=== PATIENT | female | born 1965 | race African-American/Black ===

== ENCOUNTER 2018-11-21 12:05 | Observation (INO) ==
[2018-11-21] MEDS ORDERED: ASPIRIN 325 MG TABLET PO STA (12:30)
[2018-11-21 13:15] LABS: Basophils # 0.1 10*3/uL (0.0-0.2); Basophils % 0.7 % (0.0-0.8); Eosinophils # 0.1 10*3/uL (0.0-0.87); Eosinophils % 0.6 % (0.00-10.9); Hematocrit 44.8 VOL% (35.7-47.0); Hemoglobin 14.8 GM/DL (12.0-16.0); Immature Granulocytes % 0.6 %; Immature Granulocytes Absolute 0.06 #; Lymphocytes # 3.2 10*3/uL (1.4-4.0); Lymphocytes % 31.6 % (21.3-54.2); Mean Corpuscular Volume 86.7 FL (87-102); Mean Platelet Volume 9.2 FL (9.6-12.0); Monocytes % 7.4 % (1.7-12.7); Neutrophils % 59.1 % (38.7-73.9); Platelet Count 407 T/CUMM (130-400); Red Blood Count 5.17 MC/CUMM (3.8-5.5); Red Cell Distribution Width 13.5 % (9.3-17.3); White Blood Count 10.1 T/CUMM (4-12)
[2018-11-21 13:25] LABS: PT Patient Result 10.9 SECS
[2018-11-21 13:43] LABS: Apearance,Urine Slightly Hazy (Clear); Bacteria,Urine Many /HPF (Few); Bilirubin,Urine Negative (Negative); Blood, Urine Small mg/dL (Negative); Glucose,Urine (UA) Negative (Negative); Hyaline Casts,Urine 22 /LPF (0-3); Ketones,Urine Negative (Negative); Mucus,Urine Occasional /LPF (Occasional); Nitrite,Urine Negative (Negative); Protein,Urine Negative; RBC,Urine 1 /HPF (0-4); Squamous Epithelial Cell,Urine Occasional /HPF (0-10); Urine Color Yellow (Yellow); Urine Specific Gravity 1.012 (1.001-1.035); Urine Urobilinogen < 2.0 EU/DL (0.2-1.0); WBC,Urine 3 /HPF (0-6)
[2018-11-21 13:49] LABS: Barbiturates Screen,Urine Negative (Negative); Benzodiazepines Screen,Urine Negative (Negative); Cannabinoid Screen,Urine Negative (Negative); Opiate Screen,Urine Negative (Negative); Phencyclidine Screen,Urine Negative (Negative)
[2018-11-21 13:57] LABS: Albumin 4.1 G/DL (3.4-5.0); Bilirubin,Total 0.6 MG/DL (0.2-1.0); Calcium 9.6 MG/DL (8.5-10.1); Total Protein 8.9 G/DL (6.4-8.3)
[2018-11-21] MEDS ORDERED: ALUM/MAG/SIMETH/LIDO VISC 1:1 30 ML BOTTLE PO PRN (15:33)
[2018-11-21] MEDS: PANTOPRAZOLE 40 MG TABLET PO SCH (16:12)
[2018-11-21] MEDS: ENOXAPARIN 120 MG/0.8 ML SYRINGE SUBCUT SCH (16:12)
[2018-11-21] MEDS ORDERED: COLCHICINE 0.6 MG CAPSULE PO PRN (17:02)
[2018-11-21] MEDS ORDERED: oxyCODONE/ACETAMINOPHEN 5-325 MG TABLET PO PRN (17:02)
[2018-11-21] MEDS ORDERED: predniSONE 20 MG TABLET PO PRN (17:02)
[2018-11-21] MEDS ORDERED: POTASSIUM CHLORIDE 20 MEQ TABLET PO ONE (17:05)
[2018-11-21] MEDS: clonazePAM 0.5 MG TABLET PO SCH (20:40)
[2018-11-21] MEDS: DOCUSATE SODIUM 100 MG CAPSULE PO SCH (20:40)
[2018-11-21] MEDS: lamoTRIgine 25 MG TABLET PO SCH (21:33)
[2018-11-22 05:59] LABS: Basophils # 0.1 10*3/uL (0.0-0.2); Basophils % 0.7 % (0.0-0.8); Eosinophils # 0.1 10*3/uL (0.0-0.87); Eosinophils % 0.8 % (0.00-10.9); Hematocrit 41.4 VOL% (35.7-47.0); Hemoglobin 13.6 GM/DL (12.0-16.0); Immature Granulocytes % 0.8 %; Immature Granulocytes Absolute 0.08 #; Lymphocytes # 3.3 10*3/uL (1.4-4.0); Lymphocytes % 32.1 % (21.3-54.2); Mean Corpuscular HGB Conc 32.9 GM/DL (32-36); Mean Corpuscular Volume 87.5 FL (87-102); Mean Platelet Volume 9.3 FL (9.6-12.0); Monocytes % 9.3 % (1.7-12.7); Neutrophils % 56.3 % (38.7-73.9); Platelet Count 367 T/CUMM (130-400); Red Blood Count 4.73 MC/CUMM (3.8-5.5); Red Cell Distribution Width 13.6 % (9.3-17.3); White Blood Count 10.4 T/CUMM (4-12)
[2018-11-22 06:20] LABS: Risk Ratio 3.4; VLDL CHOLESTEROL 32.4 MG/DL
[2018-11-22 06:26] LABS: Albumin 3.5 G/DL (3.4-5.0); Bilirubin,Total 0.6 MG/DL (0.2-1.0); Calcium 9.3 MG/DL (8.5-10.1); Osmolality,Calculated 287.4 MOS/KG (273-304); Thyroid Stimulating Hormone 1.37 uIU/ml (0.358-3.74); Total Protein 8.2 G/DL (6.4-8.3)
[2018-11-22] MEDS ORDERED: POTASSIUM CHLORIDE 20 MEQ TABLET PO PRN (07:02)
[2018-11-22] MEDS ORDERED: POTASSIUM CHLORIDE 20 MEQ TABLET PO ONE (07:02)
[2018-11-22] MEDS: MULTIVITAMIN (INTRINSIC) CAPSULE PO SCH (08:31)
[2018-11-22] MEDS: DOCUSATE SODIUM 100 MG CAPSULE PO SCH ×2 (08:31→20:48)
[2018-11-22] MEDS: PANTOPRAZOLE 40 MG TABLET PO SCH (08:31)
[2018-11-22] MEDS: ESCITALOPRAM 10 MG TABLET PO SCH (08:31)
[2018-11-22] MEDS: ATENOLOL 50 MG TABLET PO SCH (08:32)
[2018-11-22] MEDS: lamoTRIgine 25 MG TABLET PO SCH ×2 (08:32→20:48)
[2018-11-22] MEDS: ONDANSETRON 4 MG/2 ML VIAL IV PRN (14:50)
[2018-11-22] MEDS: ENOXAPARIN 120 MG/0.8 ML SYRINGE SUBCUT SCH (15:57)
[2018-11-22] MEDS: clonazePAM 0.5 MG TABLET PO SCH (20:48)
[2018-11-23] MEDS: ONDANSETRON 4 MG/2 ML VIAL IV PRN (00:04)
[2018-11-23 06:47] LABS: Basophils # 0.1 10*3/uL (0.0-0.2); Basophils % 0.7 % (0.0-0.8); Eosinophils # 0.1 10*3/uL (0.0-0.87); Eosinophils % 1.3 % (0.00-10.9); Hematocrit 39.5 VOL% (35.7-47.0); Hemoglobin 12.6 GM/DL (12.0-16.0); Immature Granulocytes % 0.6 %; Immature Granulocytes Absolute 0.05 #; Lymphocytes # 3.4 10*3/uL (1.4-4.0); Lymphocytes % 41.3 % (21.3-54.2); Mean Corpuscular HGB Conc 31.9 GM/DL (32-36); Mean Corpuscular Volume 87.8 FL (87-102); Mean Platelet Volume 9.3 FL (9.6-12.0); Monocytes % 10.2 % (1.7-12.7); Neutrophils % 45.9 % (38.7-73.9); Platelet Count 327 T/CUMM (130-400); Red Cell Distribution Width 13.4 % (9.3-17.3); White Blood Count 8.3 T/CUMM (4-12)
[2018-11-23 07:15] LABS: Calcium 8.7 MG/DL (8.5-10.1); Osmolality,Calculated 280.5 MOS/KG (273-304)
[2018-11-23] MEDS: ESCITALOPRAM 10 MG TABLET PO SCH (09:04)
[2018-11-23] MEDS: MULTIVITAMIN (INTRINSIC) CAPSULE PO SCH (09:04)
[2018-11-23] MEDS: PANTOPRAZOLE 40 MG TABLET PO SCH (09:05)
[2018-11-23] MEDS: lamoTRIgine 25 MG TABLET PO SCH (09:05)
[2018-11-23] MEDS: DOCUSATE SODIUM 100 MG CAPSULE PO SCH (09:05)
[2018-11-23] MEDS: ATENOLOL 50 MG TABLET PO SCH (09:05)
[2018-11-23 11:02] VITALS: BP 98/68
== END 2018-11-23 14:45 | disposition home or self-care (01) ==
LOC: N.EDINP 12:05 → N.ED 12:05 → SUATTDRO 14:32 → N.3E 16:37
PROVIDERS: ADMIT Family Medicine; ATTEND Internal Medicine

== ENCOUNTER 2019-11-12 00:45 | Observation (INO) ==
[2019-11-12] MEDS ORDERED: SODIUM CHLORIDE 0.9% 500 ML IV STA (01:24)
[2019-11-12] MEDS ORDERED: ONDANSETRON 4 MG/2 ML VIAL IV STA (01:24)
[2019-11-12 02:15] LABS: Basophils # 0.1 10*3/uL (0.0-0.2); Basophils % 0.6 % (0.0-0.8); Eosinophils # 0.1 10*3/uL (0.0-0.87); Eosinophils % 0.5 % (0.00-10.9); Hematocrit 41.2 VOL% (35.7-47.0); Hemoglobin 14.3 GM/DL (12.0-16.0); Immature Granulocytes % 0.7 %; Immature Granulocytes Absolute 0.08 #; Lymphocytes # 3.8 10*3/uL (1.4-4.0); Lymphocytes % 34.5 % (21.3-54.2); Mean Corpuscular HGB Conc 34.7 GM/DL (32-36); Mean Corpuscular Volume 86.6 FL (87-102); Mean Platelet Volume 10.5 FL (9.6-12.0); Monocytes % 7.3 % (1.7-12.7); NRBC # 0.02 10*3/uL; Neutrophils % 56.4 % (38.7-73.9); Platelet Count 346 T/CUMM (130-400); Red Blood Count 4.76 MC/CUMM (3.8-5.5); White Blood Count 10.9 T/CUMM (4-12)
[2019-11-12 02:29] LABS: Bilirubin,Total 0.6 MG/DL (0.2-1.0); Calcium 9.8 MG/DL (8.5-10.1); Osmolality,Calculated 291.5 MOS/KG (273-304); Thyroid Stimulating Hormone 4.48 uIU/ml (0.358-3.74); Total Protein 8.7 G/DL (6.4-8.3)
[2019-11-12] MEDS ORDERED: INSULIN REGULAR 100 UNIT/ML IV STA ×2 (02:35→04:31)
[2019-11-12] MEDS ORDERED: GLUCAGON 1 MG VIAL IM PRN ×2 (02:58→11:30)
[2019-11-12] MEDS ORDERED: DEXTROSE 50% 25 GM/50 ML VIAL IV PRN ×2 (02:58→11:30)
[2019-11-12] MEDS ORDERED: diphenhydrAMINE CAP 25 MG CAPSULE PO PRN (02:58)
[2019-11-12] MEDS ORDERED: NICOTINE 21 MG/24 HR PATCH TRANSDERM PRN (02:58)
[2019-11-12] MEDS ORDERED: guaiFENesin/DM ER 600-30 MG TABLET PO PRN (02:58)
[2019-11-12] MEDS ORDERED: hydrALAZINE 20 MG/1 ML VIAL IV PRN (02:58)
[2019-11-12] MEDS ORDERED: SODIUM CHLORIDE 0.9% 500 ML IV ONE (04:35)
[2019-11-12 04:50] LABS: Calcium 8.3 MG/DL (8.5-10.1); Osmolality,Calculated 287.5 MOS/KG (273-304)
[2019-11-12 05:20] LABS: ABG Base Excess -1.3 MMOL/L (-2.5-2.5); ABG HCO3 23.3 MMOL/L (20-26); ABG Oxygen Saturation 96.7 % (95-100); ABG PCO2 36.7 MM HG (35-48); ABG PH 7.405 (7.35-7.45); ABG PO2 87.3 MM HG (80-95); ABG TCO2 19.9 MMOL/L (23-27); Allen Test Positive; Pt O2 Delivery Device Room Air
[2019-11-12] MEDS: SODIUM CHLORIDE 0.9% 1,000 ML IV SCH ×3 (06:29→23:30)
[2019-11-12] MEDS: INSULIN REGULAR 100 UNIT/ML SUBCUT SCH ×5 (06:36→20:58)
[2019-11-12 07:00] LABS: Apearance,Urine CLEAR (Clear); Bilirubin,Urine Negative (Negative); Blood, Urine Small mg/dL (Negative); Glucose,Urine (UA) >=500 mg/dL (Negative); Ketones,Urine Negative (Negative); Nitrite,Urine Negative (Negative); Protein,Urine Negative; RBC,Urine 2 /HPF (0-4); Squamous Epithelial Cell,Urine Occasional /HPF (0-10); Urine Color Straw (Yellow); Urine Specific Gravity 1.016 (1.001-1.035); Urine Urobilinogen < 2.0 EU/DL (0.2-1.0); WBC,Urine 1 /HPF (0-6)
[2019-11-12] MEDS: ONDANSETRON 4 MG/2 ML VIAL IV PRN ×2 (07:34→17:54)
[2019-11-12 12:21] LABS: Albumin 3.5 G/DL (3.4-5.0); Bilirubin,Total 0.5 MG/DL (0.2-1.0); Calcium 9.2 MG/DL (8.5-10.1); Total Protein 7.6 G/DL (6.4-8.3)
[2019-11-12] MEDS ORDERED: POTASSIUM CHLORIDE 20 MEQ/15 ML UDCUP PO ONE (13:10)
[2019-11-12 14:14] LABS: Calcium 8.8 MG/DL (8.5-10.1); Osmolality,Calculated 279.1 MOS/KG (273-304)
[2019-11-12 14:23] LABS: Free T4 (Free Thyroxine) 1.31 NG/DL (0.76-1.46)
[2019-11-12 14:41] LABS: HIV Antigen/Antibody Result Nonreactive (Nonreactive); Hepatitis B Core IgM Quant 0.13 Index; Hepatitis B Surface Ag Quant < 0.10 Index; Hepatitis B Surface Ag Result Negative (Negative); Hepatitis C Virus Ab Quant 0.03 Index; Hepatitis C Virus Ab Result Negative (Negative)
[2019-11-12] MEDS: metFORMIN 500 MG TABLET PO SCH (16:24)
[2019-11-12] MEDS: ACETAMINOPHEN 325 MG TABLET PO PRN (16:40)
[2019-11-12] MEDS ORDERED: INSULIN GLARGINE 100 UNIT/ML SUBCUT SCH ×3 (21:00)
[2019-11-13] MEDS: INSULIN REGULAR 100 UNIT/ML SUBCUT SCH ×4 (02:38→12:36)
[2019-11-13 06:15] LABS: Risk Ratio 4.5
[2019-11-13] MEDS: SODIUM CHLORIDE 0.9% 1,000 ML IV SCH (07:00)
[2019-11-13] MEDS: ACETAMINOPHEN 325 MG TABLET PO PRN (08:08)
[2019-11-13] MEDS: metFORMIN 500 MG TABLET PO SCH (08:09)
[2019-11-13 08:11] LABS: Basophils % 0.5 % (0.0-0.8); Eosinophils # 0.1 10*3/uL (0.0-0.87); Eosinophils % 1.3 % (0.00-10.9); Hematocrit 34.3 VOL% (35.7-47.0); Immature Granulocytes % 0.4 %; Immature Granulocytes Absolute 0.03 #; Lymphocytes # 3.1 10*3/uL (1.4-4.0); Lymphocytes % 41.5 % (21.3-54.2); Mean Corpuscular HGB Conc 33.8 GM/DL (32-36); Mean Corpuscular Volume 89.6 FL (87-102); Mean Platelet Volume 10.5 FL (9.6-12.0); Monocytes % 6.2 % (1.7-12.7); Neutrophils % 50.1 % (38.7-73.9); Red Blood Count 3.83 MC/CUMM (3.8-5.5); Red Cell Distribution Width 14.3 % (9.3-17.3)
[2019-11-13 08:21] LABS: Hemoglobin 11.6 GM/DL (12.0-16.0); Platelet Count 265 T/CUMM (130-400); White Blood Count 7.6 T/CUMM (4-12)
[2019-11-13 08:24] LABS: Calcium 8.3 MG/DL (8.5-10.1); Osmolality,Calculated 280.8 MOS/KG (273-304)
[2019-11-13] MEDS ORDERED: POTASSIUM CHLORIDE 20 MEQ TABLET PO ONE (08:50)
[2019-11-13] MEDS ORDERED: MAGNESIUM SULF RIDER 2 GM in PREMIX 1 EACH IV ONE (08:50)
[2019-11-13 11:53] VITALS: BP 95/61
== END 2019-11-13 13:43 | disposition home or self-care (01) ==
LOC: N.ED 00:45 → N.EDINP 00:45 → N.TELEN 04:00
PROVIDERS: ADMIT Internal Medicine; ATTEND Internal Medicine

== ENCOUNTER 2020-11-18 12:26 | Inpatient (IN) ==
[2020-11-18] MEDS ORDERED: cefTRIAXone 1,000 MG in SODIUM CHLORIDE 0.9% 100 ML IV STA (13:27)
[2020-11-18] MEDS ORDERED: DEXAMETHASONE 4 MG/1 ML VIAL IV STA (13:28)
[2020-11-18 14:05] LABS: ABG HCO3 17.9 MMOL/L (20-26); ABG PCO2 24.8 MM HG (35-48); ABG PH 7.477 (7.35-7.45); ABG PO2 261.5 MM HG (80-95); ABG TCO2 18.7 MMOL/L (23-27)
[2020-11-18 14:55] LABS: Basophils % 0.1 % (0.0-0.8); Eosinophils % 0.1 % (0.00-10.9); Hematocrit 35.5 VOL% (35.7-47.0); Immature Granulocytes % 0.9 %; Immature Granulocytes Absolute 0.12 #; Lymphocytes # 0.8 10*3/uL (1.4-4.0); Mean Corpuscular HGB Conc 33.8 GM/DL (32-36); Mean Corpuscular Volume 85.1 FL (87-102); Mean Platelet Volume 10.2 FL (9.6-12.0); Monocytes % 2.7 % (1.7-12.7); Neutrophils % 90.2 % (38.7-73.9); Platelet Count 231 T/CUMM (130-400); Red Blood Count 4.17 MC/CUMM (3.8-5.5); White Blood Count 13.4 T/CUMM (4-12)
[2020-11-18 15:07] LABS: PT Patient Result 10.9 SECS (10.5-12.0); Partial Thromboplastin Time 27.9 SECS (23.9-33.8)
[2020-11-18 15:20] LABS: Albumin 3.1 G/DL (3.4-5.0); Bilirubin,Total 0.7 MG/DL (0.20-1.00); Calcium 8.1 MG/DL (8.5-10.1); Osmolality,Calculated 283.4 MOS/KG (273-304); Potassium 3.7 MMOL/L (3.5-5.1); Total Protein 7.6 G/DL (6.4-8.2)
[2020-11-18] MEDS ORDERED: DEXTROSE 50% 25 GM/50 ML VIAL IV PRN ×2 (15:24)
[2020-11-18] MEDS ORDERED: GLUCAGON 1 MG VIAL IM PRN ×2 (15:24)
[2020-11-18] MEDS ORDERED: ENOXAPARIN 30 MG/0.3 ML SYRINGE SUBCUT SCH (15:30)
[2020-11-18] MEDS ORDERED: LACTATED RINGERS 1,000 ML IV ONE (16:39)
[2020-11-18 19:43] LABS: Band Neutrophils 8 % (0-10); Lymphocytes 5 % (20-55); Platelet Estimate Normal; Segmented Neutrophils 86 % (50-85); Total Cells Counted 100
[2020-11-18] MEDS: LACTATED RINGERS 1,000 ML IV SCH (20:20)
[2020-11-18] MEDS: ASCORBIC ACID 500 MG TABLET PO SCH (22:30)
[2020-11-18] MEDS: FAMOTIDINE 20 MG TABLET PO SCH (22:30)
[2020-11-18] MEDS: MELATONIN 3 MG TABLET PO SCH (22:30)
[2020-11-18] MEDS: INSULIN REGULAR 100 UNIT/ML SUBCUT SCH ×2 (22:39→22:42)
[2020-11-18] MEDS: AZITHROMYCIN INJ 500 MG in SODIUM CHLORIDE 0.9% 250 ML IV SCH (22:41)
[2020-11-18] MEDS: IVERMECTIN 3 MG TABLET PO SCH (22:41)
[2020-11-18] MEDS: CHOLECALCIFEROL 5,000 UNIT TABLET PO SCH (22:42)
[2020-11-18] MEDS: ZINC GLUCONATE 50 MG TABLET PO SCH (22:42)
[2020-11-18] MEDS: ALBUTEROL INHALER 18 GM INH SCH (22:42)
[2020-11-18] MEDS: CETIRIZINE 10 MG TABLET PO SCH (22:42)
[2020-11-19 01:37] LABS: Bilirubin,Urine Negative (Negative); Blood, Urine Moderate mg/dL (Negative); Glucose,Urine (UA) Negative (Negative); Ketones,Urine Negative (Negative); Mucus,Urine Occasional /LPF (Occasional); Nitrite,Urine Negative (Negative); Protein,Urine Negative; RBC,Urine 1 /HPF (0-4); Squamous Epithelial Cell,Urine Occasional /HPF (0-10); Urine Appearance CLEAR (Clear); Urine Color Yellow (Yellow); Urine Specific Gravity 1.008 (1.001-1.035); Urine Urobilinogen < 2.0 EU/DL (0.2-1.0)
[2020-11-19] MEDS: ALBUTEROL INHALER 18 GM INH SCH ×7 (02:02→23:47)
[2020-11-19 06:22] LABS: Basophils % 0.1 % (0.0-0.8); Hematocrit 33.2 VOL% (35.7-47.0); Hemoglobin 11.3 GM/DL (12.0-16.0); Immature Granulocytes % 0.7 %; Immature Granulocytes Absolute 0.06 #; Lymphocytes # 0.6 10*3/uL (1.4-4.0); Lymphocytes % 7.3 % (21.3-54.2); Mean Corpuscular Volume 86.2 FL (87-102); Mean Platelet Volume 10.5 FL (9.6-12.0); Monocytes % 2.5 % (1.7-12.7); Neutrophils % 89.4 % (38.7-73.9); Platelet Count 221 T/CUMM (130-400); Red Blood Count 3.85 MC/CUMM (3.8-5.5); Red Cell Distribution Width 14.9 % (9.3-17.3); White Blood Count 8.5 T/CUMM (4-12)
[2020-11-19 06:45] LABS: Anisocytosis Slight; Burr Cells 1+; Platelet Estimate Normal
[2020-11-19 06:54] LABS: Albumin 2.6 G/DL (3.4-5.0); Bilirubin,Total 0.5 MG/DL (0.20-1.00); Calcium 8.2 MG/DL (8.5-10.1); Ferritin 729.4 ng/ml (8-252); Osmolality,Calculated 293.8 MOS/KG (273-304); Potassium 3.6 MMOL/L (3.5-5.1)
[2020-11-19] MEDS: INSULIN REGULAR 100 UNIT/ML SUBCUT SCH ×4 (07:55→21:13)
[2020-11-19] MEDS: LACTATED RINGERS 1,000 ML IV SCH ×4 (11:53→23:46)
[2020-11-19] MEDS: IVERMECTIN 3 MG TABLET PO SCH (11:56)
[2020-11-19] MEDS: cefTRIAXone 1,000 MG in SODIUM CHLORIDE 0.9% 100 ML IV SCH (11:56)
[2020-11-19] MEDS: ASCORBIC ACID 500 MG TABLET PO SCH ×2 (11:56→20:15)
[2020-11-19] MEDS: ZINC GLUCONATE 50 MG TABLET PO SCH (11:56)
[2020-11-19] MEDS: FAMOTIDINE 20 MG TABLET PO SCH ×2 (11:56→20:15)
[2020-11-19] MEDS: CETIRIZINE 10 MG TABLET PO SCH (11:56)
[2020-11-19] MEDS: CHOLECALCIFEROL 5,000 UNIT TABLET PO SCH (11:56)
[2020-11-19] MEDS: AZITHROMYCIN INJ 500 MG in SODIUM CHLORIDE 0.9% 250 ML IV SCH (12:05)
[2020-11-19] MEDS ORDERED: INSULIN NPH/REGULAR 70/30 100 UNIT/ML SUBCUT SCH (17:00)
[2020-11-19] MEDS: methylPREDNISolone SOD SUC 40 MG/1 ML VIAL IV SCH ×3 (17:56→23:47)
[2020-11-19] MEDS: ONDANSETRON 4 MG/2 ML VIAL IV PRN (20:15)
[2020-11-19] MEDS: ENOXAPARIN 40 MG/0.4 ML SYRINGE SUBCUT SCH ×2 (20:15→21:00)
[2020-11-19] MEDS: MELATONIN 3 MG TABLET PO SCH (20:15)
[2020-11-19] MEDS: guaiFENesin/CODEINE 5 ML LIQUID PO PRN (23:47)
[2020-11-20] MEDS: ALBUTEROL INHALER 18 GM INH SCH ×5 (02:28→18:05)
[2020-11-20 05:13] LABS: Basophils % 0.1 % (0.0-0.8); Hematocrit 33.1 VOL% (35.7-47.0); Hemoglobin 11.2 GM/DL (12.0-16.0); Immature Granulocytes % 0.8 %; Immature Granulocytes Absolute 0.07 #; Lymphocytes # 0.7 10*3/uL (1.4-4.0); Lymphocytes % 8.8 % (21.3-54.2); Mean Corpuscular HGB Conc 33.8 GM/DL (32-36); Mean Corpuscular Volume 85.8 FL (87-102); Mean Platelet Volume 9.9 FL (9.6-12.0); Neutrophils % 86.3 % (38.7-73.9); Platelet Count 283 T/CUMM (130-400); Red Blood Count 3.86 MC/CUMM (3.8-5.5); Red Cell Distribution Width 14.8 % (9.3-17.3); White Blood Count 8.3 T/CUMM (4-12)
[2020-11-20 05:50] LABS: Calcium 8.7 MG/DL (8.5-10.1); Ferritin 865.3 ng/ml (8-252); Osmolality,Calculated 286.7 MOS/KG (273-304); Potassium 3.6 MMOL/L (3.5-5.1)
[2020-11-20] MEDS: methylPREDNISolone SOD SUC 40 MG/1 ML VIAL IV SCH ×3 (06:17→17:39)
[2020-11-20] MEDS ORDERED: INSULIN NPH/REGULAR 70/30 100 UNIT/ML SUBCUT SCH (08:00)
[2020-11-20] MEDS: cefTRIAXone 1,000 MG in SODIUM CHLORIDE 0.9% 100 ML IV SCH (08:16)
[2020-11-20] MEDS: IVERMECTIN 3 MG TABLET PO SCH (08:16)
[2020-11-20] MEDS: FAMOTIDINE 20 MG TABLET PO SCH (08:16)
[2020-11-20] MEDS: LACTATED RINGERS 1,000 ML IV SCH ×2 (08:16→15:01)
[2020-11-20] MEDS: CETIRIZINE 10 MG TABLET PO SCH (08:17)
[2020-11-20] MEDS: CHOLECALCIFEROL 5,000 UNIT TABLET PO SCH (08:17)
[2020-11-20] MEDS: ZINC GLUCONATE 50 MG TABLET PO SCH (08:17)
[2020-11-20] MEDS: ASCORBIC ACID 500 MG TABLET PO SCH (08:17)
[2020-11-20 10:07] LABS: Hypochromasia Slight; Platelet Estimate Normal
[2020-11-20] MEDS: AZITHROMYCIN INJ 500 MG in SODIUM CHLORIDE 0.9% 250 ML IV SCH (10:23)
[2020-11-20] MEDS: INSULIN REGULAR 100 UNIT/ML SUBCUT SCH ×3 (10:23→17:38)
[2020-11-20] MEDS: INSULIN NPH/REGULAR 70/30 100 UNIT/ML SUBCUT SCH (17:39)
[2020-11-20] MEDS: MELATONIN 3 MG TABLET PO SCH (21:00)
[2020-11-21] MEDS: INSULIN REGULAR 100 UNIT/ML SUBCUT SCH ×5 (00:01→20:07)
[2020-11-21] MEDS: FAMOTIDINE 20 MG TABLET PO SCH ×3 (01:13→20:08)
[2020-11-21] MEDS: ASCORBIC ACID 500 MG TABLET PO SCH ×3 (01:13→20:08)
[2020-11-21] MEDS: methylPREDNISolone SOD SUC 40 MG/1 ML VIAL IV SCH ×4 (02:49→17:32)
[2020-11-21] MEDS: LACTATED RINGERS 1,000 ML IV SCH ×3 (05:33→19:39)
[2020-11-21 05:52] LABS: Basophils % 0.1 % (0.0-0.8); Hematocrit 34.2 VOL% (35.7-47.0); Hemoglobin 11.1 GM/DL (12.0-16.0); Immature Granulocytes % 1.2 %; Immature Granulocytes Absolute 0.13 #; Lymphocytes % 9.3 % (21.3-54.2); Mean Corpuscular HGB Conc 32.5 GM/DL (32-36); Mean Corpuscular Volume 87.7 FL (87-102); Mean Platelet Volume 9.5 FL (9.6-12.0); Monocytes % 7.1 % (1.7-12.7); Neutrophils % 82.3 % (38.7-73.9); Platelet Count 310 T/CUMM (130-400); Red Cell Distribution Width 14.8 % (9.3-17.3); White Blood Count 10.6 T/CUMM (4-12)
[2020-11-21 06:17] LABS: Calcium 8.8 MG/DL (8.5-10.1); Ferritin 547.5 ng/ml (8-252); Osmolality,Calculated 285.1 MOS/KG (273-304); Potassium 3.2 MMOL/L (3.5-5.1)
[2020-11-21] MEDS ORDERED: ALBUTEROL/IPRATROPIUM 3 ML NEB RESP TX PRN (08:20)
[2020-11-21] MEDS: ZINC GLUCONATE 50 MG TABLET PO SCH (10:11)
[2020-11-21] MEDS: CHOLECALCIFEROL 5,000 UNIT TABLET PO SCH (10:11)
[2020-11-21] MEDS: IVERMECTIN 3 MG TABLET PO SCH (10:11)
[2020-11-21] MEDS: POTASSIUM CHLORIDE RIDER 10 MEQ/100 ML PREMIX IV SCH ×4 (10:12→16:04)
[2020-11-21] MEDS: INSULIN NPH/REGULAR 70/30 100 UNIT/ML SUBCUT SCH ×2 (10:13→17:32)
[2020-11-21] MEDS: CETIRIZINE 10 MG TABLET PO SCH (10:13)
[2020-11-21] MEDS: PIPERACILLIN/TAZOBACTAM 3,375 MG in SODIUM CHLORIDE 0.9% 100 ML IV SCH ×2 (11:42→17:36)
[2020-11-21] MEDS ORDERED: FUROSEMIDE 40 MG/4 ML VIAL IV ONE (14:00)
[2020-11-21] MEDS: atenoloL 50 MG TABLET PO SCH (14:09)
[2020-11-21] MEDS: ALBUTEROL INHALER 18 GM INH SCH ×3 (14:10→20:19)
[2020-11-21 14:25] LABS: ABG Base Excess 5.5 MMOL/L (-2.5-2.5); ABG HCO3 29.3 MMOL/L (20-26); ABG Oxygen Saturation 92.6 % (95-100); ABG PCO2 38.9 MM HG (35-48); ABG PH 7.484 (7.35-7.45); ABG PO2 64.8 MM HG (80-95); ABG TCO2 25.7 MMOL/L (23-27)
[2020-11-21] MEDS: MELATONIN 3 MG TABLET PO SCH (20:08)
[2020-11-21] MEDS: ENOXAPARIN 40 MG/0.4 ML SYRINGE SUBCUT SCH (20:08)
[2020-11-21] MEDS: AZITHROMYCIN INJ 500 MG in SODIUM CHLORIDE 0.9% 250 ML IV SCH (20:36)
[2020-11-21] MEDS: guaiFENesin/CODEINE 5 ML LIQUID PO PRN (23:20)
[2020-11-22] MEDS: methylPREDNISolone SOD SUC 40 MG/1 ML VIAL IV SCH ×4 (00:44→17:11)
[2020-11-22] MEDS: ALBUTEROL INHALER 18 GM INH SCH ×4 (00:44→21:35)
[2020-11-22] MEDS: PIPERACILLIN/TAZOBACTAM 3,375 MG in SODIUM CHLORIDE 0.9% 100 ML IV SCH ×3 (00:44→18:04)
[2020-11-22] MEDS: guaiFENesin/CODEINE 5 ML LIQUID PO PRN ×2 (04:15→13:00)
[2020-11-22 05:10] LABS: ABG Base Excess 7.5 MMOL/L (-2.5-2.5); ABG HCO3 31.2 MMOL/L (20-26); ABG Oxygen Saturation 93.5 % (95-100); ABG PCO2 45.4 MM HG (35-48); ABG PH 7.461 (7.35-7.45); ABG PO2 70.3 MM HG (80-95); ABG TCO2 28.6 MMOL/L (23-27)
[2020-11-22 06:30] LABS: Basophils % 0.2 % (0.0-0.8); Hematocrit 34.1 VOL% (35.7-47.0); Hemoglobin 11.3 GM/DL (12.0-16.0); Immature Granulocytes % 2.5 %; Immature Granulocytes Absolute 0.24 #; Lymphocytes % 9.9 % (21.3-54.2); Mean Corpuscular HGB Conc 33.1 GM/DL (32-36); Mean Platelet Volume 9.7 FL (9.6-12.0); Monocytes % 8.5 % (1.7-12.7); Neutrophils % 78.9 % (38.7-73.9); Platelet Count 336 T/CUMM (130-400); Red Blood Count 3.92 MC/CUMM (3.8-5.5); Red Cell Distribution Width 14.8 % (9.3-17.3); White Blood Count 9.7 T/CUMM (4-12)
[2020-11-22 06:50] LABS: Ferritin 452.6 ng/ml (8-252)
[2020-11-22 07:00] LABS: Hypochromasia 1+; Lymphocytes 3 % (20-55); Microcytosis 1+; Platelet Estimate Adequate; Segmented Neutrophils 90 % (50-85); Total Cells Counted 100
[2020-11-22 07:01] LABS: Calcium 8.7 MG/DL (8.5-10.1); Osmolality,Calculated 291.3 MOS/KG (273-304); Potassium 2.8 MMOL/L (3.5-5.1)
[2020-11-22] MEDS ORDERED: MAGNESIUM SULF RIDER 4 GM/100 ML PREMIX IV PRN (07:34)
[2020-11-22] MEDS ORDERED: MAGNESIUM SULF RIDER 2 GM/50 ML PREMIX IV PRN (07:34)
[2020-11-22] MEDS: IVERMECTIN 3 MG TABLET PO SCH (08:54)
[2020-11-22] MEDS: CETIRIZINE 10 MG TABLET PO SCH (08:54)
[2020-11-22] MEDS: CHOLECALCIFEROL 5,000 UNIT TABLET PO SCH (08:54)
[2020-11-22] MEDS: ASCORBIC ACID 500 MG TABLET PO SCH ×2 (08:54→21:37)
[2020-11-22] MEDS: ZINC GLUCONATE 50 MG TABLET PO SCH (08:54)
[2020-11-22] MEDS: INSULIN NPH/REGULAR 70/30 100 UNIT/ML SUBCUT SCH ×2 (08:55→17:10)
[2020-11-22] MEDS: INSULIN REGULAR 100 UNIT/ML SUBCUT SCH ×4 (08:55→21:36)
[2020-11-22] MEDS: LACTATED RINGERS 1,000 ML IV SCH (10:40)
[2020-11-22] MEDS: atenoloL 50 MG TABLET PO SCH (10:56)
[2020-11-22] MEDS: FAMOTIDINE 20 MG TABLET PO SCH ×2 (12:22→21:37)
[2020-11-22] MEDS: POTASSIUM CHLORIDE 20 MEQ TABLET PO PRN ×4 (12:22→14:56)
[2020-11-22] MEDS ORDERED: POTASSIUM CHLORIDE 20 MEQ TABLET PO ONE (17:10)
[2020-11-22] MEDS: AZITHROMYCIN INJ 500 MG in SODIUM CHLORIDE 0.9% 250 ML IV SCH (21:36)
[2020-11-22] MEDS: MELATONIN 3 MG TABLET PO SCH (21:37)
[2020-11-22] MEDS: ENOXAPARIN 40 MG/0.4 ML SYRINGE SUBCUT SCH (21:37)
[2020-11-23] MEDS: POTASSIUM CHLORIDE RIDER 10 MEQ/100 ML PREMIX IV SCH ×2 (00:48→00:49)
[2020-11-23] MEDS: methylPREDNISolone SOD SUC 40 MG/1 ML VIAL IV SCH ×4 (01:06→18:11)
[2020-11-23] MEDS: ALBUTEROL INHALER 18 GM INH SCH ×4 (01:06→19:20)
[2020-11-23] MEDS: PIPERACILLIN/TAZOBACTAM 3,375 MG in SODIUM CHLORIDE 0.9% 100 ML IV SCH ×3 (01:06→18:12)
[2020-11-23] MEDS: ONDANSETRON 4 MG/2 ML VIAL IV PRN (03:28)
[2020-11-23] MEDS: ZINC GLUCONATE 50 MG TABLET PO SCH (08:53)
[2020-11-23] MEDS: ASCORBIC ACID 500 MG TABLET PO SCH ×2 (08:54→21:22)
[2020-11-23] MEDS: CETIRIZINE 10 MG TABLET PO SCH (08:54)
[2020-11-23] MEDS: CHOLECALCIFEROL 5,000 UNIT TABLET PO SCH (08:55)
[2020-11-23] MEDS: FAMOTIDINE 20 MG TABLET PO SCH ×2 (08:55→21:21)
[2020-11-23] MEDS: POTASSIUM CHLORIDE 20 MEQ TABLET PO PRN (08:55)
[2020-11-23] MEDS: INSULIN NPH/REGULAR 70/30 100 UNIT/ML SUBCUT SCH ×2 (08:55→17:20)
[2020-11-23] MEDS: atenoloL 50 MG TABLET PO SCH (08:55)
[2020-11-23] MEDS: INSULIN REGULAR 100 UNIT/ML SUBCUT SCH ×4 (08:56→23:21)
[2020-11-23 10:05] LABS: Calcium 8.7 MG/DL (8.5-10.1); Osmolality,Calculated 289.1 MOS/KG (273-304); Potassium 3.5 MMOL/L (3.5-5.1)
[2020-11-23] MEDS: guaiFENesin/CODEINE 5 ML LIQUID PO PRN (11:37)
[2020-11-23] MEDS: AZITHROMYCIN 250 MG TABLET PO SCH (14:57)
[2020-11-23] MEDS: ENOXAPARIN 40 MG/0.4 ML SYRINGE SUBCUT SCH (18:12)
[2020-11-23] MEDS: MELATONIN 3 MG TABLET PO SCH (21:21)
[2020-11-24] MEDS: methylPREDNISolone SOD SUC 40 MG/1 ML VIAL IV SCH ×4 (00:02→18:19)
[2020-11-24] MEDS: ALBUTEROL INHALER 18 GM INH SCH ×4 (01:23→19:00)
[2020-11-24] MEDS: PIPERACILLIN/TAZOBACTAM 3,375 MG in SODIUM CHLORIDE 0.9% 100 ML IV SCH ×3 (01:23→18:19)
[2020-11-24] MEDS: ENOXAPARIN 40 MG/0.4 ML SYRINGE SUBCUT SCH ×2 (06:11→21:31)
[2020-11-24 06:46] LABS: Basophils % 0.2 % (0.0-0.8); Hematocrit 34.7 VOL% (35.7-47.0); Hemoglobin 11.2 GM/DL (12.0-16.0); Immature Granulocytes % 2.3 %; Immature Granulocytes Absolute 0.31 #; Lymphocytes # 0.9 10*3/uL (1.4-4.0); Lymphocytes % 6.6 % (21.3-54.2); Mean Corpuscular HGB Conc 32.3 GM/DL (32-36); Mean Corpuscular Volume 89.7 FL (87-102); Monocytes % 3.8 % (1.7-12.7); Neutrophils % 87.1 % (38.7-73.9); Platelet Count 254 T/CUMM (130-400); Red Blood Count 3.87 MC/CUMM (3.8-5.5); Red Cell Distribution Width 14.8 % (9.3-17.3); White Blood Count 13.2 T/CUMM (4-12)
[2020-11-24 07:03] LABS: Calcium 8.6 MG/DL (8.5-10.1); Osmolality,Calculated 287.3 MOS/KG (273-304); Potassium 3.4 MMOL/L (3.5-5.1)
[2020-11-24] MEDS: INSULIN REGULAR 100 UNIT/ML SUBCUT SCH ×4 (08:46→21:30)
[2020-11-24] MEDS: FAMOTIDINE 20 MG TABLET PO SCH ×2 (09:32→21:31)
[2020-11-24] MEDS: CETIRIZINE 10 MG TABLET PO SCH (09:32)
[2020-11-24] MEDS: AZITHROMYCIN 250 MG TABLET PO SCH (09:32)
[2020-11-24] MEDS: ASCORBIC ACID 500 MG TABLET PO SCH ×2 (09:32→21:31)
[2020-11-24] MEDS: atenoloL 50 MG TABLET PO SCH (09:33)
[2020-11-24] MEDS: CHOLECALCIFEROL 5,000 UNIT TABLET PO SCH (09:33)
[2020-11-24] MEDS: ACETAMINOPHEN 325 MG TABLET PO PRN (09:33)
[2020-11-24] MEDS: ZINC GLUCONATE 50 MG TABLET PO SCH (09:33)
[2020-11-24] MEDS: INSULIN NPH/REGULAR 70/30 100 UNIT/ML SUBCUT SCH ×2 (09:34→17:46)
[2020-11-24] MEDS ORDERED: ALPRAZolam 0.25 MG TABLET PO ONE (09:47)
[2020-11-24] MEDS ORDERED: ALUM/MAG/SIMETH/LIDO VISC 1:1 30 ML BOTTLE PO ONE (11:42)
[2020-11-24] MEDS: MORPHINE 2 MG/1 ML SYRINGE IV PRN (11:57)
[2020-11-24] MEDS: ONDANSETRON 4 MG/2 ML VIAL IV PRN (11:58)
[2020-11-24] MEDS: LORazepam 2 MG/1 ML VIAL IV PRN ×2 (13:46→14:52)
[2020-11-24] MEDS ORDERED: ETOMIDATE 20 MG/10 ML VIAL IV ONE (14:45)
[2020-11-24] MEDS ORDERED: SUCCINYLCHOLINE 200 MG/10 ML VIAL ONE (14:45)
[2020-11-24] MEDS ORDERED: HALOPERIDOL 5 MG/ML AMP ONE (14:49)
[2020-11-24] MEDS ORDERED: HALOPERIDOL 5 MG/ML AMP IM ONE ×2 (14:55→16:18)
[2020-11-24] MEDS ORDERED: DEXMEDETOMIDINE 200 MCG in SODIUM CHLORIDE 0.9% 48 ML IV PRN (15:16)
[2020-11-24] MEDS: FUROSEMIDE 40 MG/4 ML VIAL IV SCH (15:30)
[2020-11-24] MEDS: DEXMEDETOMIDINE 400 MCG in SODIUM CHLORIDE 0.9% 96 ML IV PRN (17:53)
[2020-11-24] MEDS: MELATONIN 3 MG TABLET PO SCH (21:31)
[2020-11-25] MEDS: ALBUTEROL INHALER 18 GM INH SCH ×4 (01:00→19:00)
[2020-11-25] MEDS: methylPREDNISolone SOD SUC 40 MG/1 ML VIAL IV SCH ×4 (01:20→17:02)
[2020-11-25] MEDS: PIPERACILLIN/TAZOBACTAM 3,375 MG in SODIUM CHLORIDE 0.9% 100 ML IV SCH ×3 (02:40→17:03)
[2020-11-25 06:22] LABS: Basophils % 0.1 % (0.0-0.8); Hematocrit 34.2 VOL% (35.7-47.0); Hemoglobin 11.1 GM/DL (12.0-16.0); Immature Granulocytes % 2.3 %; Immature Granulocytes Absolute 0.28 #; Lymphocytes # 0.8 10*3/uL (1.4-4.0); Lymphocytes % 6.8 % (21.3-54.2); Mean Corpuscular HGB Conc 32.5 GM/DL (32-36); Mean Corpuscular Volume 87.9 FL (87-102); Monocytes % 4.1 % (1.7-12.7); Neutrophils % 86.7 % (38.7-73.9); Platelet Count 229 T/CUMM (130-400); Red Blood Count 3.89 MC/CUMM (3.8-5.5); Red Cell Distribution Width 14.7 % (9.3-17.3); White Blood Count 12.1 T/CUMM (4-12)
[2020-11-25 06:49] LABS: Albumin 2.2 G/DL (3.4-5.0); Bilirubin,Direct 0.18 MG/DL (0.0-0.20); Bilirubin,Indirect 1.3 MG/DL (0.0-1.0); Bilirubin,Total 1.5 MG/DL (0.20-1.00); Calcium 8.7 MG/DL (8.5-10.1); Osmolality,Calculated 288.7 MOS/KG (273-304); Potassium 3.1 MMOL/L (3.5-5.1); Total Protein 6.8 G/DL (6.4-8.2)
[2020-11-25] MEDS: FUROSEMIDE 40 MG/4 ML VIAL IV SCH ×2 (09:08→17:01)
[2020-11-25] MEDS: INSULIN REGULAR 100 UNIT/ML SUBCUT SCH ×4 (09:09→20:50)
[2020-11-25] MEDS: CHOLECALCIFEROL 5,000 UNIT TABLET PO SCH (09:09)
[2020-11-25] MEDS: atenoloL 50 MG TABLET PO SCH (09:09)
[2020-11-25] MEDS: ASCORBIC ACID 500 MG TABLET PO SCH ×2 (09:09→21:08)
[2020-11-25] MEDS: ZINC GLUCONATE 50 MG TABLET PO SCH (09:09)
[2020-11-25] MEDS: AZITHROMYCIN 250 MG TABLET PO SCH (09:10)
[2020-11-25] MEDS: CETIRIZINE 10 MG TABLET PO SCH (09:10)
[2020-11-25] MEDS: FAMOTIDINE 20 MG TABLET PO SCH ×2 (09:10→21:08)
[2020-11-25] MEDS: ENOXAPARIN 60 MG/0.6 ML SYRINGE SUBCUT SCH ×2 (09:16→21:07)
[2020-11-25] MEDS: POTASSIUM CHLORIDE 20 MEQ TABLET PO SCH ×4 (09:17→21:07)
[2020-11-25] MEDS: MORPHINE 2 MG/1 ML SYRINGE IV PRN ×3 (09:17→17:09)
[2020-11-25] MEDS: INSULIN NPH/REGULAR 70/30 100 UNIT/ML SUBCUT SCH ×2 (10:56→17:02)
[2020-11-25] MEDS: DEXMEDETOMIDINE 400 MCG in SODIUM CHLORIDE 0.9% 96 ML IV PRN (16:16)
[2020-11-25] MEDS: POTASSIUM CHLORIDE RIDER 10 MEQ/100 ML PREMIX IV PRN ×2 (21:05→22:30)
[2020-11-25] MEDS: MELATONIN 3 MG TABLET PO SCH (21:08)
[2020-11-25 21:30] LABS: ABG Base Excess 13.1 MMOL/L (-2.5-2.5); ABG HCO3 38.5 MMOL/L (20-26); ABG Oxygen Saturation 95.8 % (95-100); ABG PCO2 51.7 MM HG (35-48); ABG PO2 84.3 MM HG (80-95); ABG TCO2 40.1 MMOL/L (23-27)
[2020-11-26] MEDS: PIPERACILLIN/TAZOBACTAM 3,375 MG in SODIUM CHLORIDE 0.9% 100 ML IV SCH ×3 (02:00→17:55)
[2020-11-26] MEDS: ALBUTEROL INHALER 18 GM INH SCH ×4 (02:00→18:30)
[2020-11-26] MEDS: methylPREDNISolone SOD SUC 40 MG/1 ML VIAL IV SCH ×3 (02:10→18:06)
[2020-11-26] MEDS: MORPHINE 2 MG/1 ML SYRINGE IV PRN ×3 (04:15→21:40)
[2020-11-26 04:28] LABS: Basophils % 0.1 % (0.0-0.8); Hematocrit 35.7 VOL% (35.7-47.0); Hemoglobin 11.6 GM/DL (12.0-16.0); Immature Granulocytes % 2.1 %; Lymphocytes # 1.1 10*3/uL (1.4-4.0); Lymphocytes % 7.4 % (21.3-54.2); Mean Corpuscular HGB Conc 32.5 GM/DL (32-36); Mean Corpuscular Volume 88.1 FL (87-102); Mean Platelet Volume 9.7 FL (9.6-12.0); Monocytes % 4.8 % (1.7-12.7); Neutrophils % 85.6 % (38.7-73.9); Platelet Count 293 T/CUMM (130-400); Red Blood Count 4.05 MC/CUMM (3.8-5.5); Red Cell Distribution Width 14.9 % (9.3-17.3); White Blood Count 14.2 T/CUMM (4-12)
[2020-11-26 05:05] LABS: Calcium 9.2 MG/DL (8.5-10.1); Osmolality,Calculated 296.6 MOS/KG (273-304); Potassium 3.5 MMOL/L (3.5-5.1)
[2020-11-26] MEDS ORDERED: FUROSEMIDE 40 MG/4 ML VIAL IV SCH (09:00)
[2020-11-26] MEDS: INSULIN NPH/REGULAR 70/30 100 UNIT/ML SUBCUT SCH ×2 (09:05→17:20)
[2020-11-26] MEDS: INSULIN REGULAR 100 UNIT/ML SUBCUT SCH ×4 (09:23→20:40)
[2020-11-26] MEDS: guaiFENesin/CODEINE 5 ML LIQUID PO PRN ×2 (09:33→17:15)
[2020-11-26] MEDS: CETIRIZINE 10 MG TABLET PO SCH (09:33)
[2020-11-26] MEDS: atenoloL 50 MG TABLET PO SCH (09:35)
[2020-11-26] MEDS: FAMOTIDINE 20 MG TABLET PO SCH ×2 (09:35→20:40)
[2020-11-26] MEDS: ZINC GLUCONATE 50 MG TABLET PO SCH (09:37)
[2020-11-26] MEDS: CHOLECALCIFEROL 5,000 UNIT TABLET PO SCH (09:41)
[2020-11-26] MEDS ORDERED: CHOLESTYRAMINE 4 GM PACK PO PRN (09:45)
[2020-11-26] MEDS: FUROSEMIDE 40 MG/4 ML VIAL IV SCH (09:45)
[2020-11-26] MEDS: ENOXAPARIN 60 MG/0.6 ML SYRINGE SUBCUT SCH ×2 (09:45→20:40)
[2020-11-26] MEDS: ASCORBIC ACID 500 MG TABLET PO SCH ×2 (09:50→20:40)
[2020-11-26] MEDS: POTASSIUM CHLORIDE RIDER 10 MEQ/100 ML PREMIX IV PRN ×3 (14:05→18:06)
[2020-11-26] MEDS: MELATONIN 3 MG TABLET PO SCH (20:40)
[2020-11-27] MEDS: methylPREDNISolone SOD SUC 40 MG/1 ML VIAL IV SCH ×3 (02:05→16:30)
[2020-11-27] MEDS: PIPERACILLIN/TAZOBACTAM 3,375 MG in SODIUM CHLORIDE 0.9% 100 ML IV SCH (02:05)
[2020-11-27] MEDS: MORPHINE 2 MG/1 ML SYRINGE IV PRN (02:20)
[2020-11-27] MEDS: ALBUTEROL INHALER 18 GM INH SCH ×4 (02:33→18:09)
[2020-11-27 04:34] LABS: Basophils % 0.2 % (0.0-0.8); Hematocrit 33.5 VOL% (35.7-47.0); Hemoglobin 10.8 GM/DL (12.0-16.0); Immature Granulocytes % 1.3 %; Immature Granulocytes Absolute 0.16 #; Lymphocytes # 0.9 10*3/uL (1.4-4.0); Lymphocytes % 6.8 % (21.3-54.2); Mean Corpuscular HGB Conc 32.2 GM/DL (32-36); Mean Corpuscular Volume 89.3 FL (87-102); Monocytes % 3.7 % (1.7-12.7); Platelet Count 298 T/CUMM (130-400); Red Blood Count 3.75 MC/CUMM (3.8-5.5); Red Cell Distribution Width 14.9 % (9.3-17.3); White Blood Count 12.6 T/CUMM (4-12)
[2020-11-27 04:51] LABS: Potassium 3.7 MMOL/L (3.5-5.1)
[2020-11-27] MEDS: POTASSIUM CHLORIDE RIDER 10 MEQ/100 ML PREMIX IV PRN (06:45)
[2020-11-27] MEDS: INSULIN NPH/REGULAR 70/30 100 UNIT/ML SUBCUT SCH ×2 (08:25→16:31)
[2020-11-27] MEDS: ZINC GLUCONATE 50 MG TABLET PO SCH (08:33)
[2020-11-27] MEDS: FAMOTIDINE 20 MG TABLET PO SCH ×2 (08:33→20:50)
[2020-11-27] MEDS: CETIRIZINE 10 MG TABLET PO SCH (08:33)
[2020-11-27] MEDS: atenoloL 50 MG TABLET PO SCH (08:33)
[2020-11-27] MEDS: CHOLECALCIFEROL 5,000 UNIT TABLET PO SCH (08:33)
[2020-11-27] MEDS: ASCORBIC ACID 500 MG TABLET PO SCH ×2 (08:33→20:50)
[2020-11-27] MEDS: FUROSEMIDE 40 MG/4 ML VIAL IV SCH ×2 (08:34→16:31)
[2020-11-27] MEDS: ENOXAPARIN 60 MG/0.6 ML SYRINGE SUBCUT SCH ×2 (08:34→20:50)
[2020-11-27] MEDS: INSULIN REGULAR 100 UNIT/ML SUBCUT SCH ×4 (08:53→20:50)
[2020-11-27] MEDS: LORazepam 2 MG/1 ML VIAL IV PRN ×2 (08:58→12:32)
[2020-11-27] MEDS: MELATONIN 3 MG TABLET PO SCH (20:50)
[2020-11-28] MEDS: ALBUTEROL INHALER 18 GM INH SCH ×4 (01:00→19:00)
[2020-11-28] MEDS: methylPREDNISolone SOD SUC 40 MG/1 ML VIAL IV SCH ×3 (01:50→17:27)
[2020-11-28 04:34] LABS: Basophils % 0.1 % (0.0-0.8); Eosinophils % 0.1 % (0.00-10.9); Hematocrit 34.8 VOL% (35.7-47.0); Hemoglobin 11.1 GM/DL (12.0-16.0); Immature Granulocytes % 1.7 %; Lymphocytes # 1.1 10*3/uL (1.4-4.0); Lymphocytes % 6.1 % (21.3-54.2); Mean Corpuscular HGB Conc 31.9 GM/DL (32-36); Monocytes % 5.1 % (1.7-12.7); Neutrophils % 86.9 % (38.7-73.9); Platelet Count 359 T/CUMM (130-400); Red Blood Count 3.91 MC/CUMM (3.8-5.5); Red Cell Distribution Width 14.9 % (9.3-17.3); White Blood Count 17.2 T/CUMM (4-12)
[2020-11-28 04:59] LABS: Calcium 9.2 MG/DL (8.5-10.1); Osmolality,Calculated 285.4 MOS/KG (273-304); Potassium 3.3 MMOL/L (3.5-5.1)
[2020-11-28] MEDS: POTASSIUM CHLORIDE 20 MEQ TABLET PO PRN ×2 (05:50→07:55)
[2020-11-28] MEDS: CETIRIZINE 10 MG TABLET PO SCH (09:23)
[2020-11-28] MEDS: ASCORBIC ACID 500 MG TABLET PO SCH ×2 (09:23→21:22)
[2020-11-28] MEDS: CHOLECALCIFEROL 5,000 UNIT TABLET PO SCH (09:23)
[2020-11-28] MEDS: INSULIN REGULAR 100 UNIT/ML SUBCUT SCH ×4 (09:23→21:22)
[2020-11-28] MEDS: atenoloL 50 MG TABLET PO SCH (09:23)
[2020-11-28] MEDS: INSULIN NPH/REGULAR 70/30 100 UNIT/ML SUBCUT SCH ×2 (09:24→17:28)
[2020-11-28] MEDS: FUROSEMIDE 40 MG/4 ML VIAL IV SCH ×2 (09:24→17:28)
[2020-11-28] MEDS: ENOXAPARIN 60 MG/0.6 ML SYRINGE SUBCUT SCH ×2 (09:26→21:19)
[2020-11-28] MEDS: FAMOTIDINE 20 MG TABLET PO SCH ×2 (09:38→21:22)
[2020-11-28] MEDS: POTASSIUM CHLORIDE 20 MEQ TABLET PO SCH ×4 (09:38→21:21)
[2020-11-28] MEDS: guaiFENesin/CODEINE 5 ML LIQUID PO PRN (09:42)
[2020-11-28] MEDS: ZINC GLUCONATE 50 MG TABLET PO SCH (09:42)
[2020-11-28] MEDS: cefTRIAXone 1,000 MG in SODIUM CHLORIDE 0.9% 100 ML IV SCH (09:42)
[2020-11-28] MEDS: MELATONIN 3 MG TABLET PO SCH (21:22)
[2020-11-29] MEDS: methylPREDNISolone SOD SUC 40 MG/1 ML VIAL IV SCH ×3 (01:54→17:16)
[2020-11-29] MEDS: ALBUTEROL INHALER 18 GM INH SCH ×4 (01:54→21:03)
[2020-11-29 04:13] LABS: Basophils % 0.1 % (0.0-0.8); Eosinophils % 0.1 % (0.00-10.9); Hematocrit 34.5 VOL% (35.7-47.0); Hemoglobin 11.1 GM/DL (12.0-16.0); Immature Granulocytes % 1.8 %; Immature Granulocytes Absolute 0.28 #; Lymphocytes # 1.2 10*3/uL (1.4-4.0); Lymphocytes % 7.3 % (21.3-54.2); Mean Corpuscular HGB Conc 32.2 GM/DL (32-36); Mean Corpuscular Volume 88.7 FL (87-102); Neutrophils % 85.7 % (38.7-73.9); Platelet Count 406 T/CUMM (130-400); Red Blood Count 3.89 MC/CUMM (3.8-5.5); Red Cell Distribution Width 14.9 % (9.3-17.3); White Blood Count 15.8 T/CUMM (4-12)
[2020-11-29 04:34] LABS: Calcium 9.1 MG/DL (8.5-10.1); Osmolality,Calculated 284.4 MOS/KG (273-304); Potassium 3.7 MMOL/L (3.5-5.1)
[2020-11-29] MEDS: ONDANSETRON 4 MG/2 ML VIAL IV PRN (07:50)
[2020-11-29] MEDS: MORPHINE 2 MG/1 ML SYRINGE IV PRN (07:50)
[2020-11-29] MEDS: INSULIN REGULAR 100 UNIT/ML SUBCUT SCH ×4 (08:35→21:04)
[2020-11-29] MEDS: cefTRIAXone 1,000 MG in SODIUM CHLORIDE 0.9% 100 ML IV SCH (09:10)
[2020-11-29] MEDS: CHOLECALCIFEROL 5,000 UNIT TABLET PO SCH (09:11)
[2020-11-29] MEDS: FUROSEMIDE 40 MG/4 ML VIAL IV SCH ×2 (09:11→17:15)
[2020-11-29] MEDS: ENOXAPARIN 60 MG/0.6 ML SYRINGE SUBCUT SCH ×2 (09:11→21:04)
[2020-11-29] MEDS: atenoloL 50 MG TABLET PO SCH (09:11)
[2020-11-29] MEDS: ASCORBIC ACID 500 MG TABLET PO SCH ×2 (09:11→21:04)
[2020-11-29] MEDS: CETIRIZINE 10 MG TABLET PO SCH (09:11)
[2020-11-29] MEDS: INSULIN NPH/REGULAR 70/30 100 UNIT/ML SUBCUT SCH ×2 (09:12→17:16)
[2020-11-29] MEDS: FAMOTIDINE 20 MG TABLET PO SCH ×2 (09:12→21:04)
[2020-11-29] MEDS: ZINC GLUCONATE 50 MG TABLET PO SCH (09:13)
[2020-11-29] MEDS: guaiFENesin/CODEINE 5 ML LIQUID PO PRN (13:48)
[2020-11-29] MEDS: LORazepam 2 MG/1 ML VIAL IV PRN (20:05)
[2020-11-29] MEDS: MELATONIN 3 MG TABLET PO SCH (21:04)
[2020-11-30] MEDS: ALBUTEROL INHALER 18 GM INH SCH ×4 (01:20→21:00)
[2020-11-30] MEDS: methylPREDNISolone SOD SUC 40 MG/1 ML VIAL IV SCH ×3 (01:20→16:14)
[2020-11-30] MEDS: LORazepam 2 MG/1 ML VIAL IV PRN (01:58)
[2020-11-30 05:32] LABS: ABG Base Excess 12.9 MMOL/L (-2.5-2.5); ABG HCO3 39.1 MMOL/L (20-26); ABG Oxygen Saturation 95.9 % (95-100); ABG PCO2 57.7 MM HG (35-48); ABG PH 7.449 (7.35-7.45); ABG PO2 87.5 MM HG (80-95); ABG TCO2 40.9 MMOL/L (23-27); Allen Test Positive; Pt O2 Delivery Device Other
[2020-11-30 05:48] LABS: Basophils % 0.1 % (0.0-0.8); Eosinophils % 0.1 % (0.00-10.9); Hematocrit 35.9 VOL% (35.7-47.0); Hemoglobin 11.5 GM/DL (12.0-16.0); Immature Granulocytes % 1.4 %; Lymphocytes # 0.8 10*3/uL (1.4-4.0); Lymphocytes % 5.4 % (21.3-54.2); Mean Corpuscular Volume 89.3 FL (87-102); Mean Platelet Volume 9.9 FL (9.6-12.0); Monocytes % 4.1 % (1.7-12.7); Neutrophils % 88.9 % (38.7-73.9); Platelet Count 360 T/CUMM (130-400); Red Blood Count 4.02 MC/CUMM (3.8-5.5); Red Cell Distribution Width 14.7 % (9.3-17.3); White Blood Count 14.8 T/CUMM (4-12)
[2020-11-30 06:22] LABS: Albumin 2.4 G/DL (3.4-5.0); Bilirubin,Total 0.6 MG/DL (0.20-1.00); Calcium 9.1 MG/DL (8.5-10.1); Osmolality,Calculated 286.3 MOS/KG (273-304); Potassium 3.9 MMOL/L (3.5-5.1); Total Protein 6.7 G/DL (6.4-8.2)
[2020-11-30] MEDS: INSULIN NPH/REGULAR 70/30 100 UNIT/ML SUBCUT SCH ×2 (09:25→16:14)
[2020-11-30] MEDS: INSULIN REGULAR 100 UNIT/ML SUBCUT SCH ×4 (09:25→21:20)
[2020-11-30] MEDS: ENOXAPARIN 60 MG/0.6 ML SYRINGE SUBCUT SCH ×2 (09:26→21:22)
[2020-11-30] MEDS: FUROSEMIDE 40 MG/4 ML VIAL IV SCH ×2 (09:26→16:14)
[2020-11-30] MEDS: cefTRIAXone 1,000 MG in SODIUM CHLORIDE 0.9% 100 ML IV SCH (09:26)
[2020-11-30] MEDS: CHOLECALCIFEROL 5,000 UNIT TABLET PO SCH (09:27)
[2020-11-30] MEDS: ZINC GLUCONATE 50 MG TABLET PO SCH (09:27)
[2020-11-30] MEDS: ASCORBIC ACID 500 MG TABLET PO SCH ×2 (09:27→21:18)
[2020-11-30] MEDS: atenoloL 50 MG TABLET PO SCH (09:27)
[2020-11-30] MEDS: FAMOTIDINE 20 MG TABLET PO SCH ×2 (12:37→21:18)
[2020-11-30] MEDS: CETIRIZINE 10 MG TABLET PO SCH (12:37)
[2020-11-30] MEDS: MELATONIN 3 MG TABLET PO SCH (21:17)
[2020-11-30] MEDS: guaiFENesin/CODEINE 5 ML LIQUID PO PRN (21:22)
[2020-12-01] MEDS: methylPREDNISolone SOD SUC 40 MG/1 ML VIAL IV SCH ×3 (01:36→21:49)
[2020-12-01] MEDS: ALBUTEROL INHALER 18 GM INH SCH ×4 (01:40→18:17)
[2020-12-01] MEDS: guaiFENesin/CODEINE 5 ML LIQUID PO PRN ×3 (03:42→23:00)
[2020-12-01 04:22] LABS: Allen Test Positive; Pt O2 Delivery Device Other
[2020-12-01 04:29] LABS: ABG Base Excess 13.1 MMOL/L (-2.5-2.5); ABG HCO3 36.7 MMOL/L (20-26); ABG Oxygen Saturation 87.6 % (95-100); ABG PCO2 51.4 MM HG (35-48); ABG PH 7.486 (7.35-7.45); ABG PO2 54.3 MM HG (80-95); ABG TCO2 34.3 MMOL/L (23-27)
[2020-12-01 05:42] LABS: Basophils % 0.2 % (0.0-0.8); Eosinophils % 0.1 % (0.00-10.9); Hematocrit 35.3 VOL% (35.7-47.0); Hemoglobin 11.9 GM/DL (12.0-16.0); Immature Granulocytes % 1.9 %; Immature Granulocytes Absolute 0.38 #; Lymphocytes # 1.2 10*3/uL (1.4-4.0); Lymphocytes % 5.9 % (21.3-54.2); Mean Corpuscular HGB Conc 33.7 GM/DL (32-36); Mean Corpuscular Volume 86.5 FL (87-102); Mean Platelet Volume 10.3 FL (9.6-12.0); Monocytes % 5.4 % (1.7-12.7); Neutrophils % 86.5 % (38.7-73.9); Platelet Count 382 T/CUMM (130-400); Red Blood Count 4.08 MC/CUMM (3.8-5.5); Red Cell Distribution Width 14.6 % (9.3-17.3)
[2020-12-01 06:03] LABS: Calcium 9.1 MG/DL (8.5-10.1); Ferritin 525.1 ng/mL (8-252); Osmolality,Calculated 273.4 MOS/KG (273-304); Potassium 3.6 MMOL/L (3.5-5.1)
[2020-12-01 06:07] LABS: Risk Ratio 4.12
[2020-12-01] MEDS: FAMOTIDINE 20 MG TABLET PO SCH ×2 (09:16→21:49)
[2020-12-01] MEDS: CHOLECALCIFEROL 5,000 UNIT TABLET PO SCH (09:16)
[2020-12-01] MEDS: ZINC GLUCONATE 50 MG TABLET PO SCH (09:16)
[2020-12-01] MEDS: POTASSIUM CHLORIDE 20 MEQ TABLET PO PRN ×2 (09:16→11:38)
[2020-12-01] MEDS: ENOXAPARIN 60 MG/0.6 ML SYRINGE SUBCUT SCH ×2 (09:17→21:48)
[2020-12-01] MEDS: CETIRIZINE 10 MG TABLET PO SCH (09:17)
[2020-12-01] MEDS: ASCORBIC ACID 500 MG TABLET PO SCH ×2 (09:17→21:49)
[2020-12-01] MEDS: atenoloL 50 MG TABLET PO SCH (09:17)
[2020-12-01] MEDS: INSULIN NPH/REGULAR 70/30 100 UNIT/ML SUBCUT SCH ×2 (09:17→17:26)
[2020-12-01] MEDS: FUROSEMIDE 40 MG/4 ML VIAL IV SCH (09:18)
[2020-12-01] MEDS: INSULIN REGULAR 100 UNIT/ML SUBCUT SCH ×4 (09:18→21:48)
[2020-12-01] MEDS: cefTRIAXone 1,000 MG in SODIUM CHLORIDE 0.9% 100 ML IV SCH (09:48)
[2020-12-01] MEDS: ONDANSETRON 4 MG/2 ML VIAL IV PRN (11:38)
[2020-12-01] MEDS: MELATONIN 3 MG TABLET PO SCH (21:50)
[2020-12-02] MEDS: ALBUTEROL INHALER 18 GM INH SCH ×5 (02:00→18:26)
[2020-12-02 04:04] LABS: ABG Base Excess 9.5 MMOL/L (-2.5-2.5); ABG HCO3 33.1 MMOL/L (20-26); ABG Oxygen Saturation 93.9 % (95-100); ABG PCO2 53.2 MM HG (35-48); ABG PH 7.435 (7.35-7.45); ABG PO2 72.8 MM HG (80-95); ABG TCO2 31.3 MMOL/L (23-27)
[2020-12-02] MEDS: ONDANSETRON 4 MG/2 ML VIAL IV PRN (04:32)
[2020-12-02] MEDS: MORPHINE 2 MG/1 ML SYRINGE IV PRN (05:30)
[2020-12-02] MEDS ORDERED: ALUM/MAG/SIMETH/LIDO VISC 1:1 30 ML BOTTLE PO ONE (05:52)
[2020-12-02] MEDS: LORazepam 2 MG/1 ML VIAL IV PRN (06:14)
[2020-12-02 06:22] LABS: Basophils % 0.2 % (0.0-0.8); Eosinophils # 0.1 10*3/uL (0.0-0.87); Eosinophils % 0.2 % (0.00-10.9); Hematocrit 36.1 VOL% (35.7-47.0); Hemoglobin 11.7 GM/DL (12.0-16.0); Immature Granulocytes % 2.1 %; Lymphocytes # 1.2 10*3/uL (1.4-4.0); Mean Corpuscular HGB Conc 32.4 GM/DL (32-36); Mean Corpuscular Volume 87.8 FL (87-102); Mean Platelet Volume 9.9 FL (9.6-12.0); Monocytes % 6.3 % (1.7-12.7); Neutrophils % 86.2 % (38.7-73.9); Platelet Count 387 T/CUMM (130-400); Red Blood Count 4.11 MC/CUMM (3.8-5.5); White Blood Count 24.4 T/CUMM (4-12)
[2020-12-02 06:41] LABS: Hypochromasia 1+; Lymphocytes 3 % (20-55); Microcytosis 1+; Platelet Estimate Adequate; Segmented Neutrophils 92 % (50-85); Total Cells Counted 100
[2020-12-02 06:44] LABS: Calcium 8.8 MG/DL (8.5-10.1); Osmolality,Calculated 274.4 MOS/KG (273-304); Potassium 3.7 MMOL/L (3.5-5.1)
[2020-12-02] MEDS: FAMOTIDINE 20 MG TABLET PO SCH ×2 (09:11→21:16)
[2020-12-02] MEDS: ZINC GLUCONATE 50 MG TABLET PO SCH (09:11)
[2020-12-02] MEDS: CHOLECALCIFEROL 5,000 UNIT TABLET PO SCH (09:11)
[2020-12-02] MEDS: ASCORBIC ACID 500 MG TABLET PO SCH ×2 (09:11→21:17)
[2020-12-02] MEDS: atenoloL 50 MG TABLET PO SCH (09:11)
[2020-12-02] MEDS: CETIRIZINE 10 MG TABLET PO SCH (09:12)
[2020-12-02] MEDS: INSULIN REGULAR 100 UNIT/ML SUBCUT SCH ×4 (09:12→21:17)
[2020-12-02] MEDS: INSULIN NPH/REGULAR 70/30 100 UNIT/ML SUBCUT SCH ×2 (09:12→17:19)
[2020-12-02] MEDS: ENOXAPARIN 60 MG/0.6 ML SYRINGE SUBCUT SCH ×2 (09:12→21:12)
[2020-12-02] MEDS: methylPREDNISolone SOD SUC 40 MG/1 ML VIAL IV SCH ×2 (09:13→21:12)
[2020-12-02] MEDS: cefTRIAXone 1,000 MG in SODIUM CHLORIDE 0.9% 100 ML IV SCH (09:13)
[2020-12-02] MEDS ORDERED: hydrALAZINE 20 MG/1 ML VIAL IV PRN (14:04)
[2020-12-02] MEDS: MELATONIN 3 MG TABLET PO SCH (21:17)
[2020-12-02] MEDS: BENZONATATE 100 MG CAPSULE PO PRN (21:17)
[2020-12-03] MEDS: ALBUTEROL INHALER 18 GM INH SCH ×4 (01:44→19:11)
[2020-12-03] MEDS: MORPHINE 2 MG/1 ML SYRINGE IV PRN (02:04)
[2020-12-03] MEDS: guaiFENesin/CODEINE 5 ML LIQUID PO PRN ×4 (02:52→19:12)
[2020-12-03 05:24] LABS: ABG Base Excess 2.8 MMOL/L (-2.5-2.5); ABG HCO3 26.8 MMOL/L (20-26); ABG Oxygen Saturation 95.8 % (95-100); ABG PCO2 52.5 MM HG (35-48); ABG PH 7.357 (7.35-7.45); ABG PO2 89.4 MM HG (80-95); ABG TCO2 26.1 MMOL/L (23-27)
[2020-12-03 05:55] LABS: Basophils % 0.2 % (0.0-0.8); Eosinophils % 0.1 % (0.00-10.9); Hematocrit 36.6 VOL% (35.7-47.0); Hemoglobin 11.7 GM/DL (12.0-16.0); Immature Granulocytes % 1.3 %; Immature Granulocytes Absolute 0.23 #; Lymphocytes % 5.6 % (21.3-54.2); Mean Corpuscular Volume 90.1 FL (87-102); Mean Platelet Volume 10.5 FL (9.6-12.0); Monocytes % 4.2 % (1.7-12.7); Neutrophils % 88.6 % (38.7-73.9); Platelet Count 377 T/CUMM (130-400); Red Blood Count 4.06 MC/CUMM (3.8-5.5); Red Cell Distribution Width 15.3 % (9.3-17.3); White Blood Count 17.8 T/CUMM (4-12)
[2020-12-03 06:18] LABS: Ferritin 334.8 ng/mL (8-252); Osmolality,Calculated 283.1 MOS/KG (273-304)
[2020-12-03] MEDS: INSULIN REGULAR 100 UNIT/ML SUBCUT SCH ×4 (08:45→20:33)
[2020-12-03] MEDS: INSULIN NPH/REGULAR 70/30 100 UNIT/ML SUBCUT SCH ×2 (08:46→16:21)
[2020-12-03] MEDS: ASCORBIC ACID 500 MG TABLET PO SCH ×2 (08:47→20:28)
[2020-12-03] MEDS: FAMOTIDINE 20 MG TABLET PO SCH ×2 (08:47→20:28)
[2020-12-03] MEDS: ENOXAPARIN 60 MG/0.6 ML SYRINGE SUBCUT SCH ×2 (08:48→20:33)
[2020-12-03] MEDS: atenoloL 50 MG TABLET PO SCH (08:48)
[2020-12-03] MEDS: methylPREDNISolone SOD SUC 40 MG/1 ML VIAL IV SCH ×2 (08:48→20:32)
[2020-12-03] MEDS: CETIRIZINE 10 MG TABLET PO SCH (08:48)
[2020-12-03] MEDS: CHOLECALCIFEROL 5,000 UNIT TABLET PO SCH (08:48)
[2020-12-03] MEDS: cefTRIAXone 1,000 MG in SODIUM CHLORIDE 0.9% 100 ML IV SCH (08:49)
[2020-12-03] MEDS: MELATONIN 3 MG TABLET PO SCH (20:28)
[2020-12-03] MEDS: DESITIN 4OZ/NYSTATIN 15 GRAM MIXTURE PASTE TOP SCH (21:06)
[2020-12-04] MEDS: ALBUTEROL INHALER 18 GM INH SCH ×4 (01:09→18:20)
[2020-12-04] MEDS: guaiFENesin/CODEINE 5 ML LIQUID PO PRN ×4 (03:58→22:40)
[2020-12-04 05:49] LABS: Basophils % 0.2 % (0.0-0.8); Eosinophils % 0.1 % (0.00-10.9); Hematocrit 34.6 VOL% (35.7-47.0); Hemoglobin 11.2 GM/DL (12.0-16.0); Immature Granulocytes % 1.8 %; Immature Granulocytes Absolute 0.32 #; Lymphocytes # 1.3 10*3/uL (1.4-4.0); Lymphocytes % 7.2 % (21.3-54.2); Mean Corpuscular HGB Conc 32.4 GM/DL (32-36); Mean Corpuscular Volume 89.6 FL (87-102); Monocytes % 5.2 % (1.7-12.7); Neutrophils % 85.5 % (38.7-73.9); Platelet Count 334 T/CUMM (130-400); Red Blood Count 3.86 MC/CUMM (3.8-5.5); Red Cell Distribution Width 15.6 % (9.3-17.3); White Blood Count 18.1 T/CUMM (4-12)
[2020-12-04 06:17] LABS: Calcium 9.1 MG/DL (8.5-10.1); Ferritin 392.1 ng/mL (8-252); Osmolality,Calculated 282.7 MOS/KG (273-304); Potassium 3.8 MMOL/L (3.5-5.1)
[2020-12-04] MEDS: methylPREDNISolone SOD SUC 40 MG/1 ML VIAL IV SCH ×2 (09:24→21:06)
[2020-12-04] MEDS: ASCORBIC ACID 500 MG TABLET PO SCH ×2 (09:25→21:00)
[2020-12-04] MEDS: ENOXAPARIN 60 MG/0.6 ML SYRINGE SUBCUT SCH ×2 (09:25→20:59)
[2020-12-04] MEDS: BENZONATATE 100 MG CAPSULE PO PRN ×3 (09:25→21:06)
[2020-12-04] MEDS: INSULIN NPH/REGULAR 70/30 100 UNIT/ML SUBCUT SCH ×2 (09:25→16:09)
[2020-12-04] MEDS: INSULIN REGULAR 100 UNIT/ML SUBCUT SCH ×4 (09:25→22:40)
[2020-12-04] MEDS: CHOLECALCIFEROL 5,000 UNIT TABLET PO SCH (09:26)
[2020-12-04] MEDS: CETIRIZINE 10 MG TABLET PO SCH (09:26)
[2020-12-04] MEDS: atenoloL 50 MG TABLET PO SCH (09:26)
[2020-12-04] MEDS: FAMOTIDINE 20 MG TABLET PO SCH ×2 (09:26→20:59)
[2020-12-04] MEDS: DESITIN 4OZ/NYSTATIN 15 GRAM MIXTURE PASTE TOP SCH ×2 (09:27→22:46)
[2020-12-04] MEDS: cefTRIAXone 1,000 MG in SODIUM CHLORIDE 0.9% 100 ML IV SCH (09:40)
[2020-12-04] MEDS: NYSTATIN 500,000 UNIT/5 ML UDCUP SWISH/SWAL SCH ×3 (12:10→20:38)
[2020-12-04] MEDS: MELATONIN 3 MG TABLET PO SCH (20:59)
[2020-12-04] MEDS: LORazepam 2 MG/1 ML VIAL IV PRN (22:54)
[2020-12-05] MEDS: ALBUTEROL INHALER 18 GM INH SCH ×4 (00:36→20:53)
[2020-12-05] MEDS: LORazepam 2 MG/1 ML VIAL IV PRN ×3 (03:53→20:54)
[2020-12-05] MEDS: guaiFENesin/CODEINE 5 ML LIQUID PO PRN ×2 (03:53→21:09)
[2020-12-05 05:17] LABS: Basophils % 0.2 % (0.0-0.8); Hematocrit 35.9 VOL% (35.7-47.0); Hemoglobin 11.8 GM/DL (12.0-16.0); Immature Granulocytes % 1.8 %; Immature Granulocytes Absolute 0.37 #; Lymphocytes # 1.1 10*3/uL (1.4-4.0); Lymphocytes % 5.1 % (21.3-54.2); Mean Corpuscular HGB Conc 32.9 GM/DL (32-36); Mean Corpuscular Volume 88.2 FL (87-102); Mean Platelet Volume 10.1 FL (9.6-12.0); Monocytes % 3.2 % (1.7-12.7); Neutrophils % 89.7 % (38.7-73.9); Platelet Count 320 T/CUMM (130-400); Red Blood Count 4.07 MC/CUMM (3.8-5.5); White Blood Count 20.9 T/CUMM (4-12)
[2020-12-05 05:38] LABS: Osmolality,Calculated 280.8 MOS/KG (273-304); Potassium 4.3 MMOL/L (3.5-5.1)
[2020-12-05 05:48] LABS: Ferritin 345.7 ng/mL (8-252)
[2020-12-05 07:14] LABS: Anisocytosis 1+; Platelet Estimate Normal
[2020-12-05] MEDS: CETIRIZINE 10 MG TABLET PO SCH (09:31)
[2020-12-05] MEDS: ASCORBIC ACID 500 MG TABLET PO SCH ×2 (09:32→20:53)
[2020-12-05] MEDS: NYSTATIN 500,000 UNIT/5 ML UDCUP SWISH/SWAL SCH ×4 (09:32→20:53)
[2020-12-05] MEDS: FAMOTIDINE 20 MG TABLET PO SCH ×2 (09:32→20:53)
[2020-12-05] MEDS: CHOLECALCIFEROL 5,000 UNIT TABLET PO SCH (09:32)
[2020-12-05] MEDS: INSULIN NPH/REGULAR 70/30 100 UNIT/ML SUBCUT SCH ×2 (09:33→17:51)
[2020-12-05] MEDS: ENOXAPARIN 60 MG/0.6 ML SYRINGE SUBCUT SCH ×2 (09:34→20:54)
[2020-12-05] MEDS: methylPREDNISolone SOD SUC 40 MG/1 ML VIAL IV SCH ×2 (09:34→20:54)
[2020-12-05] MEDS: INSULIN REGULAR 100 UNIT/ML SUBCUT SCH ×4 (09:34→20:54)
[2020-12-05] MEDS: DESITIN 4OZ/NYSTATIN 15 GRAM MIXTURE PASTE TOP SCH ×2 (09:35→20:54)
[2020-12-05] MEDS: MORPHINE 2 MG/1 ML SYRINGE IV PRN (09:50)
[2020-12-05] MEDS: MELATONIN 3 MG TABLET PO SCH (20:53)
[2020-12-06] MEDS: guaiFENesin/CODEINE 5 ML LIQUID PO PRN ×2 (04:27→22:27)
[2020-12-06] MEDS: ALBUTEROL INHALER 18 GM INH SCH (04:31)
[2020-12-06 05:03] LABS: Basophils % 0.2 % (0.0-0.8); Hematocrit 38.2 VOL% (35.7-47.0); Hemoglobin 12.1 GM/DL (12.0-16.0); Immature Granulocytes % 1.9 %; Immature Granulocytes Absolute 0.35 #; Lymphocytes # 1.3 10*3/uL (1.4-4.0); Mean Corpuscular HGB Conc 31.7 GM/DL (32-36); Mean Corpuscular Volume 90.5 FL (87-102); Mean Platelet Volume 9.9 FL (9.6-12.0); Monocytes % 3.6 % (1.7-12.7); Neutrophils % 87.3 % (38.7-73.9); Platelet Count 336 T/CUMM (130-400); Red Blood Count 4.22 MC/CUMM (3.8-5.5); Red Cell Distribution Width 16.1 % (9.3-17.3); White Blood Count 18.7 T/CUMM (4-12)
[2020-12-06 05:30] LABS: Calcium 9.2 MG/DL (8.5-10.1); Potassium 4.1 MMOL/L (3.5-5.1)
[2020-12-06 05:32] LABS: Ferritin 394.8 ng/mL (8-252)
[2020-12-06] MEDS: CHOLECALCIFEROL 5,000 UNIT TABLET PO SCH (09:16)
[2020-12-06] MEDS: FAMOTIDINE 20 MG TABLET PO SCH ×2 (09:17→22:11)
[2020-12-06] MEDS: ASCORBIC ACID 500 MG TABLET PO SCH ×2 (09:17→22:10)
[2020-12-06] MEDS: methylPREDNISolone SOD SUC 40 MG/1 ML VIAL IV SCH (09:17)
[2020-12-06] MEDS: INSULIN NPH/REGULAR 70/30 100 UNIT/ML SUBCUT SCH ×2 (09:18→16:28)
[2020-12-06] MEDS: CETIRIZINE 10 MG TABLET PO SCH (09:19)
[2020-12-06] MEDS: INSULIN REGULAR 100 UNIT/ML SUBCUT SCH ×4 (09:19→22:08)
[2020-12-06] MEDS: NYSTATIN 500,000 UNIT/5 ML UDCUP SWISH/SWAL SCH ×4 (09:19→22:10)
[2020-12-06] MEDS: ENOXAPARIN 60 MG/0.6 ML SYRINGE SUBCUT SCH ×2 (09:20→22:09)
[2020-12-06] MEDS: DESITIN 4OZ/NYSTATIN 15 GRAM MIXTURE PASTE TOP SCH ×2 (09:21→22:58)
[2020-12-06] MEDS ORDERED: LACTULOSE 20 GM/30 ML UDCUP PO PRN (14:07)
[2020-12-06] MEDS: ALBUTEROL 2.5 MG/3 ML NEB RESP TX SCH ×2 (16:42→20:14)
[2020-12-06] MEDS: MELATONIN 3 MG TABLET PO SCH (22:11)
[2020-12-07] MEDS: LORazepam 2 MG/1 ML VIAL IV PRN (00:44)
[2020-12-07] MEDS: ALBUTEROL 2.5 MG/3 ML NEB RESP TX SCH ×5 (01:40→20:35)
[2020-12-07 05:04] LABS: Basophils % 0.2 % (0.0-0.8); Eosinophils # 0.2 10*3/uL (0.0-0.87); Eosinophils % 1.2 % (0.00-10.9); Hematocrit 35.2 VOL% (35.7-47.0); Hemoglobin 11.1 GM/DL (12.0-16.0); Immature Granulocytes % 1.4 %; Immature Granulocytes Absolute 0.22 #; Lymphocytes # 2.6 10*3/uL (1.4-4.0); Lymphocytes % 16.7 % (21.3-54.2); Mean Corpuscular HGB Conc 31.5 GM/DL (32-36); Mean Corpuscular Volume 91.4 FL (87-102); Mean Platelet Volume 9.7 FL (9.6-12.0); Monocytes % 5.1 % (1.7-12.7); Neutrophils % 75.4 % (38.7-73.9); Platelet Count 291 T/CUMM (130-400); Red Blood Count 3.85 MC/CUMM (3.8-5.5); Red Cell Distribution Width 16.4 % (9.3-17.3); White Blood Count 15.4 T/CUMM (4-12)
[2020-12-07 05:18] LABS: Calcium 8.8 MG/DL (8.5-10.1); Osmolality,Calculated 277.5 MOS/KG (273-304); Potassium 3.7 MMOL/L (3.5-5.1)
[2020-12-07 05:28] LABS: Ferritin 310.4 ng/mL (8-252)
[2020-12-07] MEDS: INSULIN REGULAR 100 UNIT/ML SUBCUT SCH ×4 (08:09→23:15)
[2020-12-07] MEDS ORDERED: methylPREDNISolone SOD SUC 40 MG/1 ML VIAL IV SCH (09:00)
[2020-12-07] MEDS: CHOLECALCIFEROL 5,000 UNIT TABLET PO SCH (09:34)
[2020-12-07] MEDS: NYSTATIN 500,000 UNIT/5 ML UDCUP SWISH/SWAL SCH ×4 (09:34→23:14)
[2020-12-07] MEDS: CETIRIZINE 10 MG TABLET PO SCH (09:34)
[2020-12-07] MEDS: DOCUSATE SODIUM 100 MG/10 ML UDCUP PO SCH (09:34)
[2020-12-07] MEDS: ASCORBIC ACID 500 MG TABLET PO SCH ×2 (09:34→23:14)
[2020-12-07] MEDS: FAMOTIDINE 20 MG TABLET PO SCH ×2 (09:34→23:14)
[2020-12-07] MEDS: ENOXAPARIN 60 MG/0.6 ML SYRINGE SUBCUT SCH ×2 (09:35→23:14)
[2020-12-07] MEDS: INSULIN NPH/REGULAR 70/30 100 UNIT/ML SUBCUT SCH ×2 (09:35→16:48)
[2020-12-07] MEDS: DESITIN 4OZ/NYSTATIN 15 GRAM MIXTURE PASTE TOP SCH ×2 (09:36→23:15)
[2020-12-07] MEDS: MELATONIN 3 MG TABLET PO SCH (23:14)
[2020-12-08] MEDS: ALBUTEROL 2.5 MG/3 ML NEB RESP TX SCH ×4 (02:08→19:12)
[2020-12-08 06:38] LABS: Basophils # 0.1 10*3/uL (0.0-0.2); Basophils % 0.4 % (0.0-0.8); Eosinophils # 0.3 10*3/uL (0.0-0.87); Eosinophils % 2.5 % (0.00-10.9); Hematocrit 33.1 VOL% (35.7-47.0); Hemoglobin 10.6 GM/DL (12.0-16.0); Immature Granulocytes % 1.7 %; Lymphocytes # 2.1 10*3/uL (1.4-4.0); Lymphocytes % 17.7 % (21.3-54.2); Mean Corpuscular Volume 91.4 FL (87-102); Mean Platelet Volume 9.7 FL (9.6-12.0); Monocytes % 5.1 % (1.7-12.7); Neutrophils % 72.6 % (38.7-73.9); Platelet Count 252 T/CUMM (130-400); Red Blood Count 3.62 MC/CUMM (3.8-5.5); Red Cell Distribution Width 16.6 % (9.3-17.3); White Blood Count 11.7 T/CUMM (4-12)
[2020-12-08 07:06] LABS: Calcium 8.5 MG/DL (8.5-10.1); Osmolality,Calculated 279.3 MOS/KG (273-304); Potassium 3.8 MMOL/L (3.5-5.1)
[2020-12-08 07:11] LABS: Ferritin 333.6 ng/mL (8-252)
[2020-12-08] MEDS: INSULIN REGULAR 100 UNIT/ML SUBCUT SCH ×3 (07:46→17:46)
[2020-12-08] MEDS: INSULIN NPH/REGULAR 70/30 100 UNIT/ML SUBCUT SCH ×2 (08:14→17:46)
[2020-12-08] MEDS: ENOXAPARIN 60 MG/0.6 ML SYRINGE SUBCUT SCH ×2 (08:14→20:09)
[2020-12-08] MEDS: CETIRIZINE 10 MG TABLET PO SCH (08:16)
[2020-12-08] MEDS: ASCORBIC ACID 500 MG TABLET PO SCH ×2 (08:16→20:08)
[2020-12-08] MEDS: CHOLECALCIFEROL 5,000 UNIT TABLET PO SCH (08:16)
[2020-12-08] MEDS: NYSTATIN 500,000 UNIT/5 ML UDCUP SWISH/SWAL SCH ×4 (08:16→20:09)
[2020-12-08] MEDS: FAMOTIDINE 20 MG TABLET PO SCH ×2 (08:16→20:08)
[2020-12-08] MEDS: DOCUSATE SODIUM 100 MG/10 ML UDCUP PO SCH (08:16)
[2020-12-08] MEDS: DESITIN 4OZ/NYSTATIN 15 GRAM MIXTURE PASTE TOP SCH ×2 (08:21→20:09)
[2020-12-08] MEDS: methylPREDNISolone SOD SUC 40 MG/1 ML VIAL IV SCH (08:26)
[2020-12-08] MEDS ORDERED: LORazepam 2 MG/1 ML VIAL ONE (19:00)
[2020-12-08] MEDS: LORazepam 2 MG/1 ML VIAL IV PRN (19:06)
[2020-12-08] MEDS: guaiFENesin/CODEINE 5 ML LIQUID PO PRN (20:08)
[2020-12-08] MEDS: MELATONIN 3 MG TABLET PO SCH (20:08)
[2020-12-09] MEDS: INSULIN REGULAR 100 UNIT/ML SUBCUT SCH ×5 (00:01→20:25)
[2020-12-09] MEDS: ALBUTEROL 2.5 MG/3 ML NEB RESP TX SCH ×4 (00:52→19:37)
[2020-12-09] MEDS ORDERED: LORazepam 2 MG/1 ML VIAL ONE ×2 (04:21→19:45)
[2020-12-09] MEDS: MORPHINE 2 MG/1 ML SYRINGE IV PRN (04:27)
[2020-12-09] MEDS: LORazepam 2 MG/1 ML VIAL IV PRN ×2 (04:28→20:00)
[2020-12-09] MEDS: guaiFENesin/CODEINE 5 ML LIQUID PO PRN ×2 (05:46→19:58)
[2020-12-09] MEDS: BENZONATATE 100 MG CAPSULE PO PRN ×2 (05:46→20:42)
[2020-12-09 06:26] LABS: Basophils # 0.1 10*3/uL (0.0-0.2); Basophils % 0.4 % (0.0-0.8); Eosinophils # 0.3 10*3/uL (0.0-0.87); Eosinophils % 2.2 % (0.00-10.9); Hematocrit 34.2 VOL% (35.7-47.0); Hemoglobin 11.4 GM/DL (12.0-16.0); Immature Granulocytes % 1.8 %; Immature Granulocytes Absolute 0.21 #; Lymphocytes # 2.3 10*3/uL (1.4-4.0); Lymphocytes % 19.6 % (21.3-54.2); Mean Corpuscular HGB Conc 33.3 GM/DL (32-36); Mean Corpuscular Volume 90.2 FL (87-102); Platelet Count 234 T/CUMM (130-400); Red Blood Count 3.79 MC/CUMM (3.8-5.5); Red Cell Distribution Width 17.1 % (9.3-17.3); White Blood Count 11.7 T/CUMM (4-12)
[2020-12-09 07:05] LABS: Calcium 8.7 MG/DL (8.5-10.1); Osmolality,Calculated 277.4 MOS/KG (273-304); Potassium 3.8 MMOL/L (3.5-5.1)
[2020-12-09] MEDS: NYSTATIN 500,000 UNIT/5 ML UDCUP SWISH/SWAL SCH ×4 (08:09→20:27)
[2020-12-09] MEDS: DOCUSATE SODIUM 100 MG/10 ML UDCUP PO SCH (08:10)
[2020-12-09] MEDS: methylPREDNISolone SOD SUC 40 MG/1 ML VIAL IV SCH (08:10)
[2020-12-09] MEDS: CHOLECALCIFEROL 5,000 UNIT TABLET PO SCH (08:10)
[2020-12-09] MEDS: ASCORBIC ACID 500 MG TABLET PO SCH ×2 (08:10→20:26)
[2020-12-09] MEDS: FAMOTIDINE 20 MG TABLET PO SCH ×2 (08:10→20:26)
[2020-12-09] MEDS: CETIRIZINE 10 MG TABLET PO SCH (08:10)
[2020-12-09] MEDS: DESITIN 4OZ/NYSTATIN 15 GRAM MIXTURE PASTE TOP SCH ×2 (08:11→20:27)
[2020-12-09] MEDS: ENOXAPARIN 60 MG/0.6 ML SYRINGE SUBCUT SCH ×2 (08:11→20:26)
[2020-12-09] MEDS: INSULIN NPH/REGULAR 70/30 100 UNIT/ML SUBCUT SCH ×2 (08:11→17:33)
[2020-12-09] MEDS: MELATONIN 3 MG TABLET PO SCH (20:26)
[2020-12-10] MEDS: ALBUTEROL 2.5 MG/3 ML NEB RESP TX SCH ×4 (01:28→19:55)
[2020-12-10] MEDS: guaiFENesin/CODEINE 5 ML LIQUID PO PRN ×4 (01:32→21:43)
[2020-12-10 05:12] LABS: Basophils % 0.3 % (0.0-0.8); Eosinophils # 0.3 10*3/uL (0.0-0.87); Eosinophils % 2.6 % (0.00-10.9); Hematocrit 33.3 VOL% (35.7-47.0); Hemoglobin 10.6 GM/DL (12.0-16.0); Immature Granulocytes % 1.7 %; Lymphocytes # 2.4 10*3/uL (1.4-4.0); Lymphocytes % 19.8 % (21.3-54.2); Mean Corpuscular HGB Conc 31.8 GM/DL (32-36); Mean Corpuscular Volume 90.7 FL (87-102); Mean Platelet Volume 9.9 FL (9.6-12.0); Monocytes % 3.8 % (1.7-12.7); Neutrophils % 71.8 % (38.7-73.9); Platelet Count 246 T/CUMM (130-400); Red Blood Count 3.67 MC/CUMM (3.8-5.5); Red Cell Distribution Width 17.2 % (9.3-17.3)
[2020-12-10 05:52] LABS: Calcium 8.4 MG/DL (8.5-10.1); Ferritin 300.4 ng/mL (8-252); Osmolality,Calculated 276.5 MOS/KG (273-304)
[2020-12-10] MEDS: ENOXAPARIN 60 MG/0.6 ML SYRINGE SUBCUT SCH ×2 (08:56→21:27)
[2020-12-10] MEDS: DOCUSATE SODIUM 100 MG/10 ML UDCUP PO SCH (08:56)
[2020-12-10] MEDS: methylPREDNISolone SOD SUC 40 MG/1 ML VIAL IV SCH (08:57)
[2020-12-10] MEDS: CHOLECALCIFEROL 5,000 UNIT TABLET PO SCH (08:58)
[2020-12-10] MEDS: CETIRIZINE 10 MG TABLET PO SCH (08:58)
[2020-12-10] MEDS: FAMOTIDINE 20 MG TABLET PO SCH ×2 (08:58→21:22)
[2020-12-10] MEDS: INSULIN NPH/REGULAR 70/30 100 UNIT/ML SUBCUT SCH ×2 (08:58→16:43)
[2020-12-10] MEDS: ASCORBIC ACID 500 MG TABLET PO SCH ×2 (08:58→21:22)
[2020-12-10] MEDS: INSULIN REGULAR 100 UNIT/ML SUBCUT SCH ×4 (09:51→21:28)
[2020-12-10] MEDS: DESITIN 4OZ/NYSTATIN 15 GRAM MIXTURE PASTE TOP SCH ×2 (09:52→21:28)
[2020-12-10] MEDS: NYSTATIN 500,000 UNIT/5 ML UDCUP SWISH/SWAL SCH ×5 (09:52→21:27)
[2020-12-10] MEDS: MELATONIN 3 MG TABLET PO SCH (21:22)
[2020-12-10] MEDS: guaiFENesin/DM ER 600-30 MG TABLET PO SCH (22:55)
[2020-12-11] MEDS: LORazepam 2 MG/1 ML VIAL IV PRN (01:20)
[2020-12-11] MEDS: ALBUTEROL 2.5 MG/3 ML NEB RESP TX SCH ×4 (01:55→20:38)
[2020-12-11 05:34] LABS: Basophils % 0.4 % (0.0-0.8); Eosinophils # 0.4 10*3/uL (0.0-0.87); Eosinophils % 3.8 % (0.00-10.9); Hematocrit 33.1 VOL% (35.7-47.0); Hemoglobin 10.7 GM/DL (12.0-16.0); Immature Granulocytes Absolute 0.19 #; Lymphocytes # 2.7 10*3/uL (1.4-4.0); Lymphocytes % 28.4 % (21.3-54.2); Mean Corpuscular HGB Conc 32.3 GM/DL (32-36); Mean Corpuscular Volume 90.2 FL (87-102); Mean Platelet Volume 9.7 FL (9.6-12.0); Monocytes % 3.8 % (1.7-12.7); NRBC # 0.02 10*3/uL; Neutrophils % 61.6 % (38.7-73.9); Platelet Count 217 T/CUMM (130-400); Red Blood Count 3.67 MC/CUMM (3.8-5.5); Red Cell Distribution Width 17.1 % (9.3-17.3); White Blood Count 9.6 T/CUMM (4-12)
[2020-12-11 05:46] LABS: Calcium 8.8 MG/DL (8.5-10.1); Osmolality,Calculated 276.5 MOS/KG (273-304); Potassium 3.8 MMOL/L (3.5-5.1)
[2020-12-11 06:35] LABS: Anisocytosis 1+; Hypochromasia 1+; Microcytosis 1+; Target Cells Slight
[2020-12-11 06:36] LABS: Platelet Estimate Normal
[2020-12-11] MEDS: DOCUSATE SODIUM 100 MG/10 ML UDCUP PO SCH (10:05)
[2020-12-11] MEDS: CHOLECALCIFEROL 5,000 UNIT TABLET PO SCH (10:06)
[2020-12-11] MEDS: guaiFENesin/DM ER 600-30 MG TABLET PO SCH (10:06)
[2020-12-11] MEDS: atenoloL 50 MG TABLET PO SCH (10:06)
[2020-12-11] MEDS: CETIRIZINE 10 MG TABLET PO SCH (10:06)
[2020-12-11] MEDS: ASCORBIC ACID 500 MG TABLET PO SCH ×2 (10:06→22:44)
[2020-12-11] MEDS: INSULIN NPH/REGULAR 70/30 100 UNIT/ML SUBCUT SCH ×2 (10:07→18:09)
[2020-12-11] MEDS: FAMOTIDINE 20 MG TABLET PO SCH ×2 (10:07→22:45)
[2020-12-11] MEDS: ENOXAPARIN 60 MG/0.6 ML SYRINGE SUBCUT SCH ×2 (10:07→22:45)
[2020-12-11] MEDS: methylPREDNISolone SOD SUC 40 MG/1 ML VIAL IV SCH (10:08)
[2020-12-11] MEDS: MORPHINE 2 MG/1 ML SYRINGE IV PRN (10:09)
[2020-12-11] MEDS: DESITIN 4OZ/NYSTATIN 15 GRAM MIXTURE PASTE TOP SCH ×2 (10:12→22:45)
[2020-12-11] MEDS: NYSTATIN 500,000 UNIT/5 ML UDCUP SWISH/SWAL SCH ×5 (10:23→22:53)
[2020-12-11] MEDS: INSULIN REGULAR 100 UNIT/ML SUBCUT SCH ×4 (10:23→22:43)
[2020-12-11] MEDS: guaiFENesin/CODEINE 5 ML LIQUID PO PRN (13:20)
[2020-12-11] MEDS ORDERED: SERTRALINE 50 MG TABLET PO SCH (21:00)
[2020-12-11] MEDS: MELATONIN 3 MG TABLET PO SCH (22:44)
[2020-12-12] MEDS: ALBUTEROL 2.5 MG/3 ML NEB RESP TX SCH ×4 (02:56→19:20)
[2020-12-12 05:40] LABS: Basophils % 0.5 % (0.0-0.8); Eosinophils # 0.3 10*3/uL (0.0-0.87); Eosinophils % 3.3 % (0.00-10.9); Hematocrit 33.3 VOL% (35.7-47.0); Hemoglobin 10.7 GM/DL (12.0-16.0); Immature Granulocytes % 2.6 %; Immature Granulocytes Absolute 0.21 #; Lymphocytes # 2.5 10*3/uL (1.4-4.0); Lymphocytes % 31.7 % (21.3-54.2); Mean Corpuscular HGB Conc 32.1 GM/DL (32-36); Mean Corpuscular Volume 90.2 FL (87-102); Mean Platelet Volume 9.9 FL (9.6-12.0); Neutrophils % 56.9 % (38.7-73.9); Platelet Count 228 T/CUMM (130-400); Red Blood Count 3.69 MC/CUMM (3.8-5.5); Red Cell Distribution Width 17.3 % (9.3-17.3); White Blood Count 7.9 T/CUMM (4-12)
[2020-12-12 06:09] LABS: Calcium 8.7 MG/DL (8.5-10.1); Osmolality,Calculated 277.4 MOS/KG (273-304); Potassium 3.6 MMOL/L (3.5-5.1)
[2020-12-12] MEDS: guaiFENesin/CODEINE 5 ML LIQUID PO PRN ×2 (06:46→15:05)
[2020-12-12] MEDS: INSULIN NPH/REGULAR 70/30 100 UNIT/ML SUBCUT SCH ×2 (10:53→18:02)
[2020-12-12] MEDS: MORPHINE 2 MG/1 ML SYRINGE IV PRN (10:53)
[2020-12-12] MEDS: DOCUSATE SODIUM 100 MG/10 ML UDCUP PO SCH (10:55)
[2020-12-12] MEDS: BENZONATATE 100 MG CAPSULE PO PRN ×3 (10:55→23:17)
[2020-12-12] MEDS: ENOXAPARIN 60 MG/0.6 ML SYRINGE SUBCUT SCH ×2 (10:55→23:17)
[2020-12-12] MEDS: methylPREDNISolone SOD SUC 40 MG/1 ML VIAL IV SCH (10:55)
[2020-12-12] MEDS: atenoloL 50 MG TABLET PO SCH (10:56)
[2020-12-12] MEDS: ASCORBIC ACID 500 MG TABLET PO SCH ×2 (10:56→23:17)
[2020-12-12] MEDS: CHOLECALCIFEROL 5,000 UNIT TABLET PO SCH (10:56)
[2020-12-12] MEDS: FAMOTIDINE 20 MG TABLET PO SCH ×2 (10:56→23:17)
[2020-12-12] MEDS: CETIRIZINE 10 MG TABLET PO SCH (10:56)
[2020-12-12] MEDS: NYSTATIN 500,000 UNIT/5 ML UDCUP SWISH/SWAL SCH ×4 (10:56→23:21)
[2020-12-12] MEDS: INSULIN REGULAR 100 UNIT/ML SUBCUT SCH ×4 (10:57→23:16)
[2020-12-12] MEDS: DESITIN 4OZ/NYSTATIN 15 GRAM MIXTURE PASTE TOP SCH ×2 (10:57→23:21)
[2020-12-12] MEDS: PARoxetine 20 MG TABLET PO SCH (15:05)
[2020-12-12] MEDS: MELATONIN 3 MG TABLET PO SCH (23:17)
[2020-12-13] MEDS: ALBUTEROL 2.5 MG/3 ML NEB RESP TX SCH ×4 (02:05→19:25)
[2020-12-13] MEDS: ACETAMINOPHEN 325 MG TABLET PO PRN ×3 (02:46→22:46)
[2020-12-13] MEDS: guaiFENesin/CODEINE 5 ML LIQUID PO PRN (02:47)
[2020-12-13 04:12] LABS: Basophils # 0.1 10*3/uL (0.0-0.2); Basophils % 0.6 % (0.0-0.8); Eosinophils # 0.3 10*3/uL (0.0-0.87); Eosinophils % 3.1 % (0.00-10.9); Hematocrit 34.4 VOL% (35.7-47.0); Hemoglobin 10.9 GM/DL (12.0-16.0); Immature Granulocytes % 2.5 %; Lymphocytes % 37.5 % (21.3-54.2); Mean Corpuscular HGB Conc 31.7 GM/DL (32-36); Mean Corpuscular Volume 91.2 FL (87-102); Mean Platelet Volume 9.8 FL (9.6-12.0); Monocytes % 4.6 % (1.7-12.7); NRBC # 0.03 10*3/uL; Neutrophils % 51.7 % (38.7-73.9); Platelet Count 237 T/CUMM (130-400); Red Blood Count 3.77 MC/CUMM (3.8-5.5); Red Cell Distribution Width 17.5 % (9.3-17.3); White Blood Count 8.1 T/CUMM (4-12)
[2020-12-13 04:47] LABS: Atypical Lymphocytes Few; Band Neutrophils 2 % (0-10); Eosinophils 3 % (0-10); Lymphocytes 38 % (20-55); Myelocytes 1 %; Nucleated Red Blood Cells 1 (0-5); Segmented Neutrophils 48 % (50-85); Total Cells Counted 100
[2020-12-13 04:48] LABS: Hypochromasia 1+; Microcytosis 1+; Ovalocytes Slight; Platelet Estimate Normal; Polychromasia Slight
[2020-12-13 04:51] LABS: Calcium 8.6 MG/DL (8.5-10.1); Ferritin 277.2 ng/mL (8-252); Osmolality,Calculated 277.4 MOS/KG (273-304); Potassium 3.9 MMOL/L (3.5-5.1)
[2020-12-13] MEDS: INSULIN REGULAR 100 UNIT/ML SUBCUT SCH ×4 (08:17→21:11)
[2020-12-13] MEDS: INSULIN NPH/REGULAR 70/30 100 UNIT/ML SUBCUT SCH ×2 (09:55→16:36)
[2020-12-13] MEDS: PARoxetine 20 MG TABLET PO SCH (09:59)
[2020-12-13] MEDS: FAMOTIDINE 20 MG TABLET PO SCH ×2 (10:00→21:11)
[2020-12-13] MEDS: atenoloL 50 MG TABLET PO SCH (10:00)
[2020-12-13] MEDS: CETIRIZINE 10 MG TABLET PO SCH (10:00)
[2020-12-13] MEDS: BENZONATATE 100 MG CAPSULE PO PRN (10:01)
[2020-12-13] MEDS: DOCUSATE SODIUM 100 MG/10 ML UDCUP PO SCH (10:02)
[2020-12-13] MEDS: ASCORBIC ACID 500 MG TABLET PO SCH ×2 (10:02→21:11)
[2020-12-13] MEDS: NYSTATIN 500,000 UNIT/5 ML UDCUP SWISH/SWAL SCH ×4 (10:04→21:12)
[2020-12-13] MEDS: ENOXAPARIN 60 MG/0.6 ML SYRINGE SUBCUT SCH ×2 (10:05→21:10)
[2020-12-13] MEDS: CHOLECALCIFEROL 5,000 UNIT TABLET PO SCH (10:07)
[2020-12-13] MEDS: DESITIN 4OZ/NYSTATIN 15 GRAM MIXTURE PASTE TOP SCH ×2 (10:07→21:16)
[2020-12-13] MEDS: methylPREDNISolone SOD SUC 40 MG/1 ML VIAL IV SCH (10:14)
[2020-12-13] MEDS: MELATONIN 3 MG TABLET PO SCH (21:10)
[2020-12-13] MEDS: CLORAZEPATE 3.75 MG TABLET PO PRN (22:46)
[2020-12-14] MEDS: ALBUTEROL 2.5 MG/3 ML NEB RESP TX SCH ×4 (01:02→19:12)
[2020-12-14] MEDS: BENZONATATE 100 MG CAPSULE PO PRN ×2 (05:04→21:28)
[2020-12-14] MEDS: CLORAZEPATE 3.75 MG TABLET PO PRN ×3 (05:05→21:28)
[2020-12-14] MEDS: FAMOTIDINE 20 MG TABLET PO SCH ×2 (08:41→21:28)
[2020-12-14] MEDS: ENOXAPARIN 60 MG/0.6 ML SYRINGE SUBCUT SCH ×2 (08:41→21:27)
[2020-12-14] MEDS: methylPREDNISolone SOD SUC 40 MG/1 ML VIAL IV SCH (08:41)
[2020-12-14] MEDS: CHOLECALCIFEROL 5,000 UNIT TABLET PO SCH (08:41)
[2020-12-14] MEDS: ASCORBIC ACID 500 MG TABLET PO SCH ×2 (08:41→21:28)
[2020-12-14] MEDS: CETIRIZINE 10 MG TABLET PO SCH (08:41)
[2020-12-14] MEDS: DOCUSATE SODIUM 100 MG/10 ML UDCUP PO SCH (08:42)
[2020-12-14] MEDS: PARoxetine 20 MG TABLET PO SCH (08:42)
[2020-12-14] MEDS: atenoloL 50 MG TABLET PO SCH (08:42)
[2020-12-14] MEDS: INSULIN REGULAR 100 UNIT/ML SUBCUT SCH ×4 (09:08→21:26)
[2020-12-14] MEDS: INSULIN NPH/REGULAR 70/30 100 UNIT/ML SUBCUT SCH ×2 (09:08→17:25)
[2020-12-14] MEDS: NYSTATIN 500,000 UNIT/5 ML UDCUP SWISH/SWAL SCH ×4 (09:08→21:26)
[2020-12-14] MEDS: DESITIN 4OZ/NYSTATIN 15 GRAM MIXTURE PASTE TOP SCH ×2 (09:09→21:28)
[2020-12-14] MEDS: MELATONIN 3 MG TABLET PO SCH (21:28)
[2020-12-15] MEDS: ALBUTEROL 2.5 MG/3 ML NEB RESP TX SCH ×3 (00:19→14:40)
[2020-12-15] MEDS: MORPHINE 2 MG/1 ML SYRINGE IV PRN (00:36)
[2020-12-15] MEDS: DOCUSATE SODIUM 100 MG/10 ML UDCUP PO SCH (09:22)
[2020-12-15] MEDS: CHOLECALCIFEROL 5,000 UNIT TABLET PO SCH (09:23)
[2020-12-15] MEDS: INSULIN NPH/REGULAR 70/30 100 UNIT/ML SUBCUT SCH ×2 (09:23→16:54)
[2020-12-15] MEDS: FAMOTIDINE 20 MG TABLET PO SCH (09:23)
[2020-12-15] MEDS: atenoloL 50 MG TABLET PO SCH (09:23)
[2020-12-15] MEDS: ENOXAPARIN 60 MG/0.6 ML SYRINGE SUBCUT SCH (09:23)
[2020-12-15] MEDS: ASCORBIC ACID 500 MG TABLET PO SCH (09:23)
[2020-12-15] MEDS: CETIRIZINE 10 MG TABLET PO SCH (09:23)
[2020-12-15] MEDS: PARoxetine 20 MG TABLET PO SCH (09:23)
[2020-12-15] MEDS: methylPREDNISolone SOD SUC 40 MG/1 ML VIAL IV SCH (09:24)
[2020-12-15] MEDS: NYSTATIN 500,000 UNIT/5 ML UDCUP SWISH/SWAL SCH ×3 (10:09→16:54)
[2020-12-15] MEDS: INSULIN REGULAR 100 UNIT/ML SUBCUT SCH ×3 (10:09→16:54)
[2020-12-15] MEDS: DESITIN 4OZ/NYSTATIN 15 GRAM MIXTURE PASTE TOP SCH (10:10)
[2020-12-15 15:54] VITALS: BP 132/65
[2020-12-15] MEDS: ACETAMINOPHEN 325 MG TABLET PO PRN (16:40)
== END 2020-12-15 17:08 | DRG 177 ==
LOC: N.ED 12:26 → N.EDINP 15:24 → SUATTDRO 15:24 → N.2E 19:52 → N.ICU 11-24 14:44 → N.2E 12-02 18:04 → N.5E 12-03 11:38
PROVIDERS: ADMIT Internal Medicine; ATTEND Internal Medicine